=== PATIENT | male | born 1965 | race Caucasian/White ===

== ENCOUNTER 2018-03-06 01:11 | Inpatient (IN) | payer MEDICAID, OTHER ==
[2018-03-06] MEDS ORDERED: NS 1,000 ML IV ONE (01:20)
[2018-03-06] MEDS ORDERED: ONDANSETRON 4 MG/2 ML VIAL IVP ONE (01:20)
[2018-03-06] MEDS ORDERED: HYDROmorphONE/DILAUDID 2 MG/ML INJ IVP ONE ×3 (01:20→03:11)
--- NOTE | 2018-03-06 01:24 | EDPHY ---
H & P Stated Complaint: L wrist pain Time Seen by Provider: 03/06/18 01:21 HPI/ROS: HPI CHIEF COMPLAINT: Left wrist pain. HISTORY OF PRESENT ILLNESS: 52-year-old male, history of osteoarthritis, multiple knee surgeries, chronic neck and back pain, with a history of cervical and thoracic spine surgery, additionally had surgery on his left wrist years ago from a fracture. Has hardware present. He presents emergency room with progressively worsening left wrist pain and swelling. He denies any trauma. He states the pain became unbearable tonight and decided call 911 from the local homeless alf. He presents emergency room complaining of 10/10 left wrist pain. It is swollen. Pain is located over the dorsum of the left wrist typically over the distal right radius. Denies any fever chills. Past Medical History: History of arthritis, multiple knee surgeries, back surgery, neck surgery, chronic back pain, history of IV drug use, history of staph infection the right knee he believes due to IV drug use. Past Surgical History: Right knee surgery. Cervical spine surgery, thoracic spine surgery. Left wrist surgery with scaphoid fracture with pin. No history of wrist infection. Social History: Homeless. Denies drugs alcohol tobacco. Staying a local homeless alf. Family History: Noncontributory ROS REVIEW OF SYSTEMS: 10 Systems were reviewed and negative with the exception of the elements mentioned in the history of present illness. Exam Constitutional triage nursing summary reviewed, vital signs reviewed, awake/ alert. Eyes normal conjunctivae and sclera, EOMI, PERRLA. HENT normal inspection, atraumatic, moist mucus membranes, no epistaxis, neck supple/ no meningismus, no raccoon eyes. Respiratory clear to auscultation bilaterally, normal breath sounds, no respiratory distress, no wheezing. Cardiovascular rate normal, regular rhythm, no murmur, no edema, distal pulses normal. Gastrointestinal soft, non-tender, no rebound, no guarding, normal bowel sounds, no distension, no pulsatile mass. Genitourinary no CVA tenderness. Musculoskeletal left wrist: Good radial pulse, good cap refill, able to wiggle his fingers appropriately. However the wrist is swollen, mainly swollen over the dorsum of the left wrist. Tender. But no crepitus. No redness. No significant warmth. Old incision lines present. No signs infection on exam externally. Pain with range of motion present. no midline vertebral tenderness, full range of motion, no calf swelling, no tenderness of extremities, no meningismus, good pulses, neurovascularly intact. Skin pink, warm, & dry, no rash, skin atraumatic. Neurologic awake, alert and oriented x 3, AAOx3, moves all 4 extremities equally, motor intact, sensory intact, CN II-XII intact, normal cerebellar, normal vision, normal speech. Psychiatric normal mood/affect. Heme/Lymph/Immune no lymphadenopathy. Differential Diagnosis: Includes but is not limited to in a particular order osteoarthritis, gout, fracture, septic joint, tendinitis Medical Decision Making: Plan for this patient x-ray left wrist. Inflammatory markers ESR and CRP, IV pain control 1 mg Dilaudid, gentle IV fluids. CBC and chemistry. Re-evaluate. Re-evaluation: X-ray left wrist reviewed by myself. Shortness arthritis. Screw in place. No evidence of fracture. Soft tissue swelling noted. No gas. Patient re-evaluated 2:30 a.m. Continues to have severe 10/10 left wrist pain. Did feel slightly better after Toradol and Dilaudid. Plan for re-dose of Dilaudid. 0239: Patient be placed in a simple splint for his wrist so he does not move it and cause more micro trauma causing were inflammation. I attempted to splint this patient however he is refusing to have the splint in place. He states too much discomfort. This was a very loosely applied splint. He states any sensation over his inflammation causes discomfort. Prefers to not have it on. Ice pack provided. 0322: Attempted to splint the patient apply ice pack however he does not tolerate this and does not want it. Refusing splint or ice pack. 3rd dose of IV Dilaudid given for pain control. At times patient moaning in pain. Given how much pain he has and discomfort and swelling was wrist plan will be for hospital admission. I doubt septic joint given no redness, no fever, no significant white count. However continues to have pain and swelling may need a arthrocentesis by Hand surgery. Plan for admission to the hospitalist service Dr. Lynn, agrees to admit. X-ray shows arthritis. Poor bone mineralization. Clinically on exam no crepitus, has tenderness with range of motion but is able to range his wrist, able to move his fingers. No compartment syndrome. IV Dilaudid IV Toradol and IV fluids given. Blood work reviewed. Uric acid normal. Hospital admission for pain control. Patient agrees for admission 0325AM: spoke with Dr. Lynn, agrees to admit. Source: Patient, EMS - Personal History Current Tetanus Diphtheria and Acellular Pertussis (TDAP): Yes - Medical/Surgical History Hx Asthma: No Hx Chronic Respiratory Disease: No Hx Diabetes: No Hx Cardiac Disease: No Hx Renal Disease: No Hx Cirrhosis: No Hx Alcoholism: No Hx HIV/AIDS: No Hx Splenectomy or Spleen Trauma: No Other PMH: L wrist fracture, perforated ulcer, ortho surgeries - Social History Smoking Status: Never smoked Constitutional: Initial Vital Signs Temperature (C) 36.7 C 03/06/18 01:15 Heart Rate 100 03/06/18 01:15 Respiratory Rate 18 03/06/18 01:15 Blood Pressure 134/89 H 03/06/18 01:15 O2 Sat (%) 97 03/06/18 01:15 O2 Delivery Mode Room Air O2 (L/minute) 2 Allergies/Adverse Reactions: acetaminophen [From Tylenol] Allergy (Verified 03/06/18 07:27) NSAIDS (Non-Steroidal Anti-Inflamma Allergy (Verified 03/06/18 07:27) hx duodenal ulcer Home Medications: Medication Instructions Recorded Clarithromycin [Biaxin (*)] 500 mg PO BID 03/06/18 Gabapentin [Neurontin 100 MG (*)] 200 mg PO TID 03/06/18 Oxycodone Ir 10mg 10 mg PO Q4HRS PRN 03/06/18 Pantoprazole Sodium [Protonix 40mg 40 mg PO DAILY 03/06/18 (*)] buPROPion XL [Wellbutrin Xl] 150 mg PO DAILY 03/06/18 traZODone [traZODONE 50MG (*)] 50 mg PO HS 03/06/18 Amoxicillin Trihydrate [Amoxil] 1,000 mg PO BID 03/08/18 Medical Decision Making - Data Points Laboratory Results: Laboratory Results 03/07/18 05:45 03/07/18 05:45 Medications Given: Amoxicillin (Amoxicillin) 1,000 mg PO BID JOANN PRN Reason: Protocol Stop: 04/07/18 08:59 Last Admin: 03/10/18 08:34 Dose: 1,000 mg Bupropion HCl (Wellbutrin Xl) 150 mg PO DAILY [facility] Stop: 09/03/18 08:59 Last Admin: 03/10/18 08:34 Dose: 150 mg Clarithromycin (Biaxin) 500 mg PO BID JOANN PRN Reason: Protocol Stop: 04/05/18 20:59 Last Admin: 03/10/18 08:34 Dose: 500 mg Gabapentin (Neurontin) 200 mg PO TID [facility] Stop: 09/02/18 15:59 Last Admin: 03/10/18 08:33 Dose: 200 mg Hydromorphone HCl (Dilaudid Prenatal Genetic Counselor) 0 mg IV PRN PRN; Protocol PRN Reason: Pain, Severe Stop: 03/16/18 09:37 Last Admin: 03/08/18 21:23 Dose: 6 mg Hydromorphone HCl (Dilaudid) 0.4 mg IVP ONCE PRN PRN Reason: Pain, Severe Able to Take PO Stop: 03/16/18 22:05 Last Admin: 03/10/18 09:34 Dose: 0.4 mg Sodium Chloride (Ns) 1,000 mls @ 125 mls/hr IV CONT [facility] Stop: 09/02/18 03:59 Last Admin: 03/10/18 05:35 Dose: 1,000 mls Daptomycin 500 mg/ Sodium (Chloride) 110 mls @ 200 mls/hr IV Q24H JOANN PRN Reason: Protocol Stop: 04/07/18 21:59 Last Admin: 03/09/18 22:28 Dose: 110 mls Lorazepam (Ativan) 0.5 - 1 mg PO Q8HRS PRN PRN Reason: Anxiety, Able to Take PO Stop: 09/02/18 03:46 Last Admin: 03/09/18 09:12 Dose: 1 mg Oxycodone HCl (Oxycodone Ir) 5 - 10 mg PO Q3H PRN PRN Reason: Pain, Breakthrough Stop: 03/16/18 07:18 Last Admin: 03/10/18 11:56 Dose: 10 mg Pantoprazole Sodium (Protonix) 40 mg PO DAILY [facility] Stop: 09/03/18 08:59 Last Admin: 03/10/18 08:34 Dose: 40 mg Trazodone HCl (Trazodone) 50 mg PO HS [facility] Stop: 09/02/18 20:59 Last Admin: 03/09/18 22:32 Dose: Not Given Discontinued Medications Bupivacaine HCl/Epinephrine Bitart (Bupivacaine/Epi) Confirm Administered Dose 30 ml .ROUTE .STK-MED ONE Stop: 03/08/18 23:32 Last Admin: 03/08/18 23:33 Dose: 10 ml Hydromorphone HCl (Dilaudid) 1 mg IVP EDNOW ONE Stop: 03/06/18 01:21 Last Admin: 03/06/18 01:41 Dose: 1 mg Hydromorphone HCl (Dilaudid) 1 mg IVP EDNOW ONE Stop: 03/06/18 02:28 Last Admin: 03/06/18 02:30 Dose: 1 mg Hydromorphone HCl (Dilaudid) 1 mg IVP EDNOW ONE Stop: 03/06/18 03:12 Last Admin: 03/06/18 03:14 Dose: 1 mg Hydromorphone HCl (Dilaudid) 1 mg IVP ONCE ONE Stop: 03/06/18 05:16 Last Admin: 03/06/18 05:00 Dose: 1 mg Hydromorphone HCl (Dilaudid) 0.1 - 0.4 mg IVP Q10M PRN PRN Reason: PACU, PAIN Stop: 03/08/18 16:09 Last Admin: 03/08/18 17:19 Dose: 0.4 mg Sodium Chloride (Ns) 1,000 mls @ 0 mls/hr IV ONCE ONE; Wide Open PRN Reason: Protocol Stop: 03/06/18 01:21 Last Admin: 03/06/18 01:40 Dose: 1,000 mls Vancomycin HCl 1.25 gm/ Sodium (Chloride) 250 mls @ 166.667 mls/hr IV Q12H [facility] Stop: 04/05/18 20:59 Last Admin: 03/08/18 11:31 Dose: Not Given Midazolam HCl (Versed) 0 mg IVP ONCALL PRN PRN Reason: Per provider during procedure Stop: 03/07/18 16:23 Last Admin: 03/07/18 16:08 Dose: 4 mg Midazolam HCl (Versed) 2 mg IVP ONCALL ONE Stop: 03/08/18 22:09 Last Admin: 03/08/18 22:11 Dose: 2 mg Miscellaneous (Pharmacy To Dose Medication) 1 each MISC AD JOANN Stop: 03/06/18 07:16 Last Admin: 03/06/18 20:33 Dose: Not Given Morphine Sulfate (Morphine) 1 - 2 mg IVP Q1HR PRN PRN Reason: Pain, Breakthrough Stop: 03/16/18 03:46 Last Admin: 03/06/18 08:13 Dose: 1 mg Ondansetron HCl (Zofran) 4 mg IVP EDNOW ONE Stop: 03/06/18 01:21 Last Admin: 03/06/18 01:41 Dose: 4 mg Oxycodone HCl (Oxycodone Ir) 5 - 10 mg PO Q6HRS PRN PRN Reason: Pain, Breakthrough Stop: 03/16/18 03:46 Last Admin: 03/06/18 20:19 Dose: 10 mg Departure - Departure Disposition: [facility] Acute Clinical Impression: Wrist pain, acute Qualifiers: Laterality: left Qualified Code(s): M25.532 - Pain in left wrist Condition: Fair
[2018-03-06 01:51] LABS: PLATELET COUNT 384 10^3/uL (150-400)
[2018-03-06 01:59] LABS: INR 1.13 (0.83-1.16); PROTIME(PATIENT) 14.7 SEC (12.0-15.0)
[2018-03-06] MEDS ORDERED: HYDROmorphONE/DILAUDID 1 MG/ML INJ ONE (03:12)
[2018-03-06] MEDS ORDERED: ACETAMINOPHEN 325 MG TAB PO PRN (03:47)
[2018-03-06] MEDS ORDERED: diphenhydrAMINE 25 MG CAP PO PRN (03:47)
[2018-03-06] MEDS ORDERED: HYDROCODONE/APAP 5/325 TAB PO PRN (03:47)
[2018-03-06] MEDS ORDERED: ONDANSETRON 4 MG/2 ML VIAL IVP PRN (03:47)
[2018-03-06] MEDS ORDERED: oxyCODONE IR 5 MG TAB PO PRN (03:47)
[2018-03-06] MEDS ORDERED: ONDANSETRON DISINTEGRATING 4 MG TAB PO PRN (03:47)
[2018-03-06] MEDS: LORazepam 0.5 MG TAB PO PRN (04:47)
[2018-03-06] MEDS: NS 1,000 ML IV SCH ×2 (05:09→15:11)
[2018-03-06 05:13] LABS: PLATELET COUNT 359 10^3/uL (150-400)
[2018-03-06] MEDS ORDERED: HYDROmorphONE/DILAUDID 1 MG/ML INJ IVP ONE (05:15)
[2018-03-06] MEDS ORDERED: HYDROmorphONE/DILAUDID 1 MG/ML INJ IVP PRN ×2 (07:29→22:06)
--- NOTE | 2018-03-06 07:48 | PDGENHP ---
History and Physical - Chief Complaint Left wrist pain and swelling - History of Present Illness Source-patient provides history and appears reliable. EMR was reviewed and case discussed with ED provider. HPI-this is a pleasant 52-year-old gentleman with past medical history significant for chronic pain on chronic narcotic therapy history of on osteoarthritis degenerative disc disease status post multiple effusions in the cervical and thoracic spine, recent history of duodenal ulcer recently discharged from [facility] 02/23/2018 for perforated duodenal ulcer status post Prsoper patch repair who presents emergency department today with complaints of severe left wrist pain and swelling. Patient had repair and pending on his scaphoid many years ago. He denies any recent injury or skin abrasions. Patient states pain started approximately 2 days ago. Has progressively been worsening. Today pain was increasing lists severe radiating up into his forearm. Patient reports some numbness and tingling in his fingers and on his arm as though everything is "on fire." Patient reports subjective fevers chills and sweats at home. He denies any nausea or vomiting. History Information - Allergies/Home Medication List Allergies/Adverse Reactions: acetaminophen [From Tylenol] Allergy (Verified 03/06/18 07:27) NSAIDS (Non-Steroidal Anti-Inflamma Allergy (Verified 03/06/18 07:27) hx duodenal ulcer Home Medications: Amoxicillin Trihydrate [Amoxicillin] 1,000 mg PO BID 03/06/18 [Last Taken Unknown] Clarithromycin [Biaxin (*)] 500 mg PO BID 03/06/18 [Last Taken Unknown] Gabapentin 03/06/18 [Last Taken Unknown] Oxycodone Ir 10mg 10 mg PO Q4HRS PRN 03/06/18 [Last Taken Unknown] Pantoprazole Sodium [Protonix 40mg (*)] 40 mg PO DAILY 03/06/18 [Last Taken Unknown] buPROPion XL [Wellbutrin Xl] 150 mg PO DAILY 03/06/18 [Last Taken Unknown] traZODone 03/06/18 [Last Taken Unknown] I have personally reviewed and updated: family history, medical history, social history, surgical history - Past Medical History Additional medical history: Chronic pain, degenerative disc disease, chronic narcotic therapy, history recent duodenal ulcer with perforation currently on triple antibiotic therapy. - Surgical History Additional surgical history: Multiple back surgeries including fusion C3 through 7, T4 through T9. Total number back surgeries 3. Left wrist surgery with pinning in the scaphoid. Right upper abdomen patient reports he had a superficial lesion or cyst removed. Denies a cholecystectomy. Recent exploratory laparotomy with a Prosper patch for perforated duodenal ulcer 2017. - Family History Additional family history: Denies - Social History Smoking Status: Never smoked Tobacco Use: Greater than 1 pack/day Alcohol Use: None Drug Use: None Additional social history: Patient with recent losses of his grandmother and . Cor status-full. Review of Systems Review of Systems: ROS: 10pt was reviewed & negative except for what was stated in HPI & below Constitutional: Reports: chills, fever, other (Reports sweats.) EENMT: Reports: no symptoms Cardiac: Reports: no symptoms Respiratory: Reports: no symptoms Gastrointestinal: Reports: no symptoms, other (Patient reports abdominal pain postoperative is pretty well controlled.) Genitourinary: Reports: no symptoms Muscolosketal: Reports: back pain (Chronic), joint pain (Left wrist pain and swelling.) Skin: Denies: no symptoms Neurological: Reports: numbness, tingling Physical Exam Physical Exam: Selected Entries 03/06/18 03/06/18 01:15 04:36 Blood Pressure Automatic Method Heart Rate 100 99 Respiratory 18 19 Rate O2 Sat (%) 97 100 Temperature (C) 36.7 C 37.4 C Blood Pressure 134/89 H 111/92 H Mean Arterial 104 H 98 Pressure (MAP) O2 (L/minute) 2 O2 Delivery Room Air Nasal Cannula Mode Blood Pressure Right Source Upper Arm Automatic Temperature Oral Oral Source Temp Pulse Resp BP Pulse Ox 37.4 C 99 19 111/92 H 100 03/06/18 04:36 03/06/18 04:36 03/06/18 04:36 03/06/18 04:36 03/06/18 04:36 O2 (L/minute) 2 Constitutional: no apparent distress, chronically ill appearing, uncomfortable, other (Patient in mild distress due to pain in his left arm. He is restless and unable to sit still. Chronically ill-appearing but Does not appear toxic) Eyes: PERRL (Decreased reactivity to light bilaterally and symmetric.), anicteric sclera, EOMI, No scleral injection Ears, Nose, Mouth, Throat: moist mucous membranes, no oral mucosal ulcers, poor dentition (Fair condition), other (No nasal discharge) Cardiovascular: regular rate and rhythym, no murmur, rub, or gallop, pulses symmetric bilaterally, edema (2+ pretibial edema bilaterally. Chronic lower extremity skin changes.) Peripheral Pulses: 1+: dorsalis-pedis (R), dorsalis-pedis (L) Respiratory: no respiratory distress, no rales or rhonchi, clear to auscultation , No expiratory wheeze, No inspiratory crackles Gastrointestinal: normoactive bowel sounds, soft, non-tender abdomen, no palpable masses, other (Right upper quadrant well-healed surgical scar. Upper midline abdominal incision site healed. Stable sites scabbed. No surrounding erythema.) Genitourinary: no bladder tenderness, No tena in urethra Skin: warm, normal color, no rashes or abrasions, No rash Musculoskeletal: full muscle strength (Except in the left upper extremity.), pain with ROM (Left fingers and wrist. Patient with significant swelling. Limited palpable radial pulse due to pain and swelling. Patient with a 2+ ulnar pulse.), No generalized weakness Neurologic: AAOx3, other (Grossly nonfocal. Patient reports numbness and tingling in his fingers. He states he is not able to feel my touch however when I move his fingers he complains of pain.), No facial droop Psychiatric: not encephalopathic, thought process linear, anxious, other Lab Data & Imaging Review 03/06/18 04:53 03/06/18 04:53 WBC 9.16 10^3/uL (3.80-9.50) 03/06/18 04:53 RBC 4.23 10^6/uL (4.40-6.38) L 03/06/18 04:53 Hgb 12.4 g/dL (13.7-17.5) L 03/06/18 04:53 Hct 37.1 % (40.0-51.0) L 03/06/18 04:53 MCV 87.7 fL (81.5-99.8) 03/06/18 04:53 MCH 29.3 pg (27.9-34.1) 03/06/18 04:53 MCHC 33.4 g/dL (32.4-36.7) 03/06/18 04:53 RDW 13.8 % (11.5-15.2) 03/06/18 04:53 Plt Count 359 10^3/uL (150-400) 03/06/18 04:53 MPV 9.3 fL (8.7-11.7) 03/06/18 04:53 Neut % (Auto) 71.9 % (39.3-74.2) 03/06/18 04:53 Lymph % (Auto) 14.7 % (15.0-45.0) L 03/06/18 04:53 Eddy % (Auto) 11.1 % (4.5-13.0) 03/06/18 04:53 Eos % (Auto) 1.6 % (0.6-7.6) 03/06/18 04:53 Baso % (Auto) 0.4 % (0.3-1.7) 03/06/18 04:53 Nucleat RBC Rel Count 0.0 % (0.0-0.2) 03/06/18 04:53 Absolute Neuts (auto) 6.57 10^3/uL (1.70-6.50) H 03/06/18 04:53 Absolute Lymphs (auto) 1.35 10^3/uL (1.00-3.00) 03/06/18 04:53 Absolute Monos (auto) 1.02 10^3/uL (0.30-0.80) H 03/06/18 04:53 Absolute Eos (auto) 0.15 10^3/uL (0.03-0.40) 03/06/18 04:53 Absolute Basos (auto) 0.04 10^3/uL (0.02-0.10) 03/06/18 04:53 Absolute Nucleated RBC 0.00 10^3/uL (0-0.01) 03/06/18 04:53 Immature Gran % 0.3 % (0.0-1.1) 03/06/18 04:53 Immature Gran # 0.03 10^3/uL (0.00-0.10) 03/06/18 04:53 ESR 15 MM/HR (0-20) 03/06/18 01:43 PT 14.7 SEC (12.0-15.0) 03/06/18 01:43 INR 1.13 (0.83-1.16) 03/06/18 01:43 APTT 32.1 SEC (23.0-38.0) 03/06/18 01:43 Sodium 138 mEq/L (135-145) 03/06/18 04:53 Potassium 4.3 mEq/L (3.3-5.0) 03/06/18 04:53 Chloride 103 mEq/L (97-110) 03/06/18 04:53 Carbon Dioxide 23 mEq/l (22-31) 03/06/18 04:53 Anion Gap 12 mEq/L (6-14) 03/06/18 04:53 BUN 14 mg/dL (7-23) 03/06/18 04:53 Creatinine 0.7 mg/dL (0.7-1.3) 03/06/18 04:53 Estimated GFR > 60 03/06/18 04:53 Glucose 121 mg/dL (70-100) H 03/06/18 04:53 Uric Acid 4.8 mg/dL (3.5-8.5) 03/06/18 01:43 Calcium 9.0 mg/dL (8.5-10.4) 03/06/18 04:53 C-Reactive Protein 58.4 mg/L (<10.0) H 03/06/18 01:43 Ethyl Alcohol < 10 mg/dL (0-10) 03/06/18 01:43 Imaging Review: Left Wrist, 4 Views, at 1:24 AM Clinical Indications: 52-year-old male with atraumatic pain and swelling for 2 days. Comparison Study: None available. Findings: There is an orthopedic screw projected over the distal two third's aspect of the navicular, and at the proximal one third aspect of the navicular, there appears to be partial osseous fusion. There also appears to be an intraosseous cyst occupying the distal two thirds portion of the central navicular. There is radiocarpal joint space narrowing with osseous hypertrophy of the radial styloid (some punctate well-corticated ossific densities are seen along the lateral margin of the radial styloid). There is a tiny subchondral marginal erosion along the radial aspect of the lunate, and subchondral geode formation is seen throughout the radial aspect of the capitate. There is some degenerative change involving the greater multangular, and some mild degenerative change at the thumb carpometacarpal joint. There is chondrocalcinosis of the triangular fibrocartilage. There appears to be an old healed distal radial metaphyseal sclerotic fracture line. There is some mild dorsal and volar soft tissue swelling. Impression: Extensive chronic features with superimposed arthropathy, as detailed-above. Correlation with prior studies would be helpful to assess for more specific interval change. Dictated By: Milan Gregory MD Visualized and Interpreted imaging results: Yes Assessment & Plan Assessment: 52-year-old gentleman with history of chronic pain on chronic narcotic therapy and history of pinning in the scaphoid left wrist who presents with complaints of 2 days worsening left wrist pain and swelling Wrist pain and swelling - patient reports acute onset of swelling and pain. He is reporting some numbness and tingling however complaints of pain when I assess for sensation. He has good ulnar pulse. Palpable radial pulse but was limited due to patient's complaint of severe pain with palpation. Patient with less than 2 sec cap refill reassuring that there is no compartment syndrome. Differential diagnosis including considerations for gout vs. Septic joint vs. Worsening arthritis. Patient is afebrile without a leukocytosis. There is no redness on the lower extremity. Patient remains quite uncomfortable. He is not a candidate for NSAIDs due to his recent duodenal ulcer. He has a history of chronic narcotic use for his chronic back pain and so pain control may be a little difficult. Aspiration of the joint for further evaluation of fluid for potential infectious process. Ortho consult this morning. Will make patient NPO. Discussed with the hospitalist. Acute on chronic pain - with use of chronic narcotic therapy as noted above. Duodenal ulcer with recent perforation and repair with Prosper patch - continue PPI. Patient is also on triple antibiotic therapy per discharge summary from [facility]. Depressed mood - continue patient's Wellbutrin 150 XL daily Anemia - baseline H&H unknown. s/p surgery. no evidence of active bleeding. denies blood in stools. monitor hh. thombocytopenia - baseline also unknown. check. patient was advised not to take tylenol. denies etoh intake. FEN - IV fluids for supplementation. Make patient NPO pending further evaluation. Electrolytes acceptable do not require replacement at this time. PPX - SCDs. Holding anticoagulation. Cor status-full Disposition-patient admitted to observation status pending additional evaluation of wrist swelling.
[2018-03-06] MEDS: oxyCODONE IR 5 MG TAB PO PRN ×5 (07:50→23:48)
[2018-03-06] MEDS ORDERED: LIDOCAINE 1% 300 MG/30 ML SDV ONE ×2 (08:49→21:38)
[2018-03-06] MEDS ORDERED: IOPAMIDOL (ISOVUE 370) 100 ML BTL IV ONE (09:18)
[2018-03-06] MEDS ORDERED: NALOXONE HCL 0.4 MG/ML INJ IVP PRN (09:38)
--- NOTE | 2018-03-06 09:45 | HOSPPROG ---
Hospitalist Progress Note Assessment/Plan: # L wrist arthritis - ortho consult - refused aspiration in IR d/t pain # uncontrolled pain - start DIRT CONTRACTOR # chronic pain on continuous narcotics # recent duodenal perf - repaired with a Prosper patch; now off IV abx - currently being treated for h. pylori # anemia - stable overnight Subjective: c/o severe pain in L wrist Objective: Vital Signs Temp Pulse Resp BP Pulse Ox 37.4 C 110 H 20 108/85 H 98 03/06/18 04:36 03/06/18 08:38 03/06/18 08:38 03/06/18 08:38 03/06/18 08:38 Laboratory Results 03/06/18 04:53 03/06/18 04:53 03/05/18 03/06/18 03/07/18 05:59 05:59 05:59 Intake Total 1000 Output Total 425 Balance 1000 -425 PT 14.7 SEC (12.0-15.0) 03/06/18 01:43 INR 1.13 (0.83-1.16) 03/06/18 01:43 i spent 40 mins of direct, prolonged patient care time discussed with Dr Lloyd who states that she was not visualization developer last night for hand surgery; dana has been placed to Dr Perez at this time - Physical Exam Constitutional: uncomfortable Cardiovascular: regular rate and rhythym, no murmur, rub, or gallop Respiratory: no respiratory distress, no rales or rhonchi, clear to auscultation Gastrointestinal: soft, non-tender abdomen, no palpable masses, No guarding, No rebound, No distension Musculoskeletal: other (L wrist very swollen, not erythematous, very TTP) ICD10 Worksheet Patient Problems: Problems Problem Status Onset Wrist pain, acute Acute
[2018-03-06] MEDS: HYDROmorphONE/DILAUDID 6 MG/30 ML PCA IV PRN ×2 (11:03→19:37)
--- NOTE | 2018-03-06 16:07 | ASMTCMCOM ---
CM Note CM Note Notes: Pt has been admitted with intractable L wrist pain. Workup in progress. He was recently discharged from [facility] after hospitalization for a perforated duodenal ulcer and surgery. He is and lives in [place]. CM will follow for any d/c needs. Date Signed: 03/06/2018 04:06 PM Electronically Signed By:ALIA Chaudhary
[2018-03-06] MEDS: GABAPENTIN 100 MG CAP PO SCH ×2 (17:46→21:39)
[2018-03-06] MEDS ORDERED: BUPIVACAINE 0.25% 30 ML SDV ONE (21:39)
--- NOTE | 2018-03-06 23:18 | HOSPPROG ---
Hospitalist Progress Note Assessment/Plan: Followed up on patient at request of Dr. Ramos, patient awaiting ortho hand consultation from earlier in the day. Called Dr. Herring who was consulted, Dr. Herring states that she has chosen to resign at [facility] and therefore is refusing to see and evaluate patient as planned. Called Dr. Renteria, ortho information systems audit manager, his recommendations are to begin abx and re-address in am with ortho hand information systems audit manager. Discussed with Dr. Mckee of IR who attempted US guided drainage--there was not a significant pocket however and drainage therefore not attempted. At this time, patient does appear stable, given lack of significant fluid collection as discussed with Dr. Mckee this may represent cellulitis but further imaging or surgical evaluation still indicated. Will ask ID to consult in the morning, will again attempt to have ortho hand evaluate patient and continue vancomycin for now. > 60 min of extended care time spent with this patient from 8pm-915pm in face to face evaluation of patient, discussion with multiple specialists and patients primary physician and in coordinating care Objective: Vital Signs Temp Pulse Resp BP Pulse Ox 37.4 C 100 16 118/87 H 86 L 03/06/18 20:00 03/06/18 20:00 03/06/18 20:00 03/06/18 20:00 03/06/18 20:00 Laboratory Results 03/06/18 04:53 03/06/18 04:53 03/05/18 03/06/18 03/07/18 05:59 05:59 05:59 Intake Total 1000 1060 Output Total 1075 Balance 1000 -15 PT 14.7 SEC (12.0-15.0) 03/06/18 01:43 INR 1.13 (0.83-1.16) 03/06/18 01:43 ICD10 Worksheet Patient Problems: Problems Problem Status Onset Wrist pain, acute Acute
[2018-03-06] MEDS: VANCOMYCIN 1.25 GM in NS 250 ML IV SCH (23:50)
[2018-03-07] MEDS: traZODone 50 MG TAB PO SCH ×2 (00:02→21:10)
[2018-03-07] MEDS: CLARITHROMYCIN 500 MG TAB PO SCH ×3 (00:02→21:11)
[2018-03-07] MEDS: NS 1,000 ML IV SCH (00:08)
[2018-03-07] MEDS: LORazepam 0.5 MG TAB PO PRN ×2 (01:02→10:05)
[2018-03-07] MEDS: HYDROmorphONE/DILAUDID 6 MG/30 ML PCA IV PRN ×3 (01:05→18:45)
[2018-03-07 05:59] LABS: PLATELET COUNT 273 10^3/uL (150-400)
[2018-03-07] MEDS: oxyCODONE IR 5 MG TAB PO PRN ×3 (06:43→17:48)
[2018-03-07] MEDS: buPROPion XL 150 MG TAB PO SCH (09:59)
[2018-03-07] MEDS: PANTOPRAZOLE SODIUM 40 MG TAB PO SCH (10:00)
[2018-03-07] MEDS: GABAPENTIN 100 MG CAP PO SCH ×3 (10:00→21:10)
[2018-03-07] MEDS: VANCOMYCIN 1.25 GM in NS 250 ML IV SCH ×2 (10:01→21:11)
--- NOTE | 2018-03-07 13:31 | GCON ---
ORTHOPEDIC EMERGENCY ROOM CONSULTATION CHIEF COMPLAINT: Left wrist and hand swelling. BRIEF HISTORY OF PRESENT ILLNESS: A 52-year-old male. Homeless. Recent history of multiple hospita lizations including septic arthritis and ulcer. Positive for hepatitis C. Developed atraumatic left hand pain for about 2-3 days. History of a scaphoid fracture and pinning maybe 15-20 years ago by bianca mills in [place]. He states that he had some hand evaluation for a potential radial nerve entrapmen t, but this is unclear from his story. Please see details of emergency room history and physical and admitting H and P. PERTINENT ORTHOPEDIC EXAMINATION: Reveals a cooperative gentleman. He is in no apparent distress. The left hand shows swelling about the hand and wrist. There is some dorsal erythema around the 1st webspace. He has an intact EPL, but painful. He has sausage digits and swelling. He has tenderness about his mid palmar space and dorsal surface of his hand. He has very limited range of motion of h is wrist. He was seen in the emergency room on Tuesday. Splint application was attempted, but there was too muc h pain. MRI was attempted yesterday, but too much movement and pain. He seemed to be recalcitrant t o most of our interventions and treatments. IMPRESSION/RECOMMENDATION: Atraumatic left wrist and hand swelling and pain. I think some further diagnostic imaging and an MRI would be super helpful to look for a deep space in fection. At least to rule out a collection and surgical indication. I still recommend a well-padded splint for immobilization. Recommend elevation, and I agree with starting prophylactic antibiotics in case this is an infectious etiology. I believe medical staff is working on hand coverage at this point. Otherwise, I think he will need a formal hand consultation. /[id number]/MODL
--- NOTE | 2018-03-07 15:02 | GCON ---
INFECTIOUS DISEASE CONSULTATION DATE OF CONSULTATION: 03/07/2018 REFERRING PHYSICIAN: Natasha Herman MD REASON FOR CONSULTATION: Possible septic arthritis of the left wrist. HISTORY OF PRESENT ILLNESS: Patient is a 52-year-old male with a past medical history of chronic everett n and injection drug use, last use reported as 5 years ago who I am asked to see in consultation for concern about possible septic arthritis of the left wrist. The patient had been hospitalized 1 week ago for a perforated duodenal ulcer requiring patch repair at [facility]. Over the 2 da ys preceding current hospital admission, the patient developed abrupt onset of left wrist, hand, and forearm pain. He did not have any preceding injury. He describes having prior surgical repair of fr acture in his wrist approximately 8 years ago. He has had some subjective fever and describes having shaking chills earlier today. He has had mild overlying erythema. He does not note any preceding i njury to his hand. He does not have a prior history of gout or pseudogout. The patient describes marshall ving several episodes of right knee septic arthritis, the most recent being in December of this year . He was hospitalized in [place] with IV antibiotic therapy and required incision and drainage. Dis charge instructions were reviewed from that hospitalization, which outline etiology was likely associ ated with tricuspid valve endocarditis and MSSA. He does not know which organism caused his infectio n. He describes current left wrist pain as being more severe than his prior right knee septic arthri tis. MRI of the upper extremity was attempted yesterday, but could not be completed successfully due to inability to stay still, secondary to pain. An ultrasound of the area was performed, which showe d diffuse soft tissue edema without evidence of local fluid collection; aspiration was not performed. Plain film of the wrist showed presence of an orthopedic screw in the navicular with partial osseou s fusion. Chondrocalcinosis was also noted. The patient has been receiving empiric vancomycin since yesterday. Given the above findings, I am now asked to assist in his ongoing management, . 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 PAST SURGICAL HISTORY: Recent repair of perforated ulcer, cervical spine surgery, lumbar fusion and drainage of probable epidural abscess, recurrent incision and drainage for right knee septic arthriti s. CURRENT MEDICATIONS: Vancomycin 1.25 g IV q.12 hours, Biaxin 500 mg p.o. b.i.d. (query if this was b eing utilized for H pylori), Wellbutrin XL 150 mg p.o. daily, Neurontin 200 mg p.o. t.i.d., Protonix 40 mg p.o. daily, trazodone 50 mg p.o. q.h.s., Protonix 40 mg p.o. daily, Dilaudid as needed for pain . ALLERGIES: Tylenol listed as drug allergy. SOCIAL HISTORY: No tobacco or alcohol use. Previous injection drug use with heroin. FAMILY HISTORY: Noncontributory. REVIEW OF SYSTEMS: Outside that noted in the HPI, the remainder of 10-system review is unremarkable. PHYSICAL EXAMINATION: VITAL SIGNS: Temperature maximum 38.0, temperature current 36.8, heart rate 9 9, respiratory rate 16, blood pressure 128/78, oxygen saturation 93% on room air. GENERAL: Patient is chronically ill appearing in no acute distress, other than that due to pain in left wrist. He wilfredo ears nontoxic. HEENT: There is no scleral icterus, conjunctival injection, or conjunctival petechia e. Oropharynx is clear without lesions. Mucous membranes are moist. Dentition in fair repair. The re is no nasal discharge. There is no tenderness over the frontal, maxillary, or mastoid area. NECK : Supple without palpable lymphadenopathy or thyromegaly. There is mild tenderness over the cervica l spine. CHEST: Clear to auscultation bilaterally without adventitious sounds. The respiratory eff ort is normal. CARDIOVASCULAR: Regular rate and rhythm without murmurs, gallops, or rubs. ABDOMEN: Soft, nontender, nondistended. No palpable organomegaly. Bowel sounds are present. MUSCULOSKELET AL: The left hand, wrist, and distal forearm are edematous with faint overlying erythema and tendern ess. The patient cannot fully flex his digits. Exquisite tenderness with wrist range of motion. Th ere is tenderness that extends into the distal forearm as well. The right knee shows edema with prob able small underlying effusion. There is mild warmth. There is no pain with range of motion or eryt christy. There is 2+ lower extremity edema bilaterally. SKIN: See musculoskeletal. There are mild ve nous insufficiency changes over both lower extremities. No stigmata of endocarditis. The skin is wa rm and dry to touch. NEUROLOGIC: Patient is alert, interacts appropriately with the examiner. Cran ial nerves 2-12 are grossly intact. Sensation is grossly intact. LYMPHATICS: No cervical or suprac lavicular nodes. No epitrochlear nodes on the left arm. LABORATORY DATA: White blood cell count 6.2, hematocrit 30.0, platelets 273, neutrophils 56%, lympho cytes 23%, monocytes 20%. ESR is 15. Serum creatinine is 0.6, bicarbonate 23. AST 130, ALT 134, bi lirubin 1.8, alkaline phosphatase 136, C-reactive protein 58.4. Urine drug screen showed opiates. V enous lactate 0.8. INR 1.1. Blood cultures x2 sets are pending. IMAGING: As outlined above. IMPRESSION: 1. Left wrist inflammatory arthropathy: Primary consideration, includes the possibility of septic a rthritis, particularly in light of prior history of probable endocarditis and right knee septic arthr itis versus crystalline arthropathy. X-ray shows presence of chondrocalcinosis, which can be seen wi th pseudogout. Overall presentation is more suggestive of crystalline arthropathy, but based on prio r infection history, likely will require fluid aspiration or incision and drainage to fully define. Plans are in place for re-attempt at MRI to further define soft tissue planes and joint. Hand Surger y consultation will also be obtained. Will continue empiric vancomycin in interim. 2. Increased liver function tests: Likely secondary to underlying known hepatitis C. RECOMMENDATIONS: 1. Continue vancomycin 1.25 g IV q.12 hours. 2. Agree with plans for MRI and Hand Surgery consultation. 3. Follow up blood cultures as available. 4. We will obtain records from hospital stay in [place] to see if further information can be delinea asaf regarding history of endocarditis and septic arthritis, including microbiologic data (face sheet from 1 of his clinic notes said MSSA). Thank you for this consultation. We will continue to follow the patient with you. /[id number]/MODL
--- NOTE | 2018-03-07 15:05 | HOSPPROG ---
Hospitalist Progress Note Assessment/Plan: 52yo M with chronic pain on opioids, multiple back surgeries with hardware, recent perforated duodenal ulcer s/p Prosper patch presents with acute onset erythema and pain in left wrist. #Left wrist arthritis: Concern for infectious (septic arthritis) vs inflammatory (gout/pseudogout flare) process. - Continue empiric vancomycin, ID following, blood cultures pending - Ortho hand (Dr Aquilino Zacarias) consulted. I personally spoke with him. Currently awaiting imaging results - Attempted to obtain MRI last night, unsuccessful due to pain/inability to sit still - US last night with no drainable abscess - Plan for MRI wrist with conscious sedation this afternoon, I personally discussed with manufacturing production technician/RN this plan - Pending imaging, may need surgical wash out #Acute on chronic pain - Continue dilaudid ADOBE FLEX DEVELOPER for pain control #Recent duodenal perforation: Repaired with Prosper patch, now off IV abx #H pylori: Currently being treated. #Aneami: Stable, monitor #Reported h/o IVDU: Denies any in 5 years or so #? h/o right knee septic arthritis: Circumstances unclear. Dispo: Remain inpatient for management of above. Anticipated date of discharge unclear. Subjective: Incredible pain in wrist. Apparently assembler clip on sunglasses was off for a few hours. Had chills last night. No fever. Objective: Vital Signs Temp Pulse Resp BP Pulse Ox 36.8 C 99 16 128/78 H 93 03/07/18 12:00 03/07/18 12:00 03/07/18 12:00 03/07/18 12:00 03/07/18 12:00 Laboratory Results 03/07/18 05:45 03/07/18 05:45 03/06/18 03/07/18 03/08/18 05:59 05:59 05:59 Intake Total 1000 1060 Output Total 1075 1300 Balance 1000 -15 -1300 PT 14.7 SEC (12.0-15.0) 03/06/18 01:43 INR 1.13 (0.83-1.16) 03/06/18 01:43 - Physical Exam Constitutional: uncomfortable (2/2 pain) Eyes: PERRL, anicteric sclera, EOMI Ears, Nose, Mouth, Throat: moist mucous membranes, hearing normal, ears appear normal, no oral mucosal ulcers Cardiovascular: regular rate and rhythym, no murmur, rub, or gallop, other (2+ left radial pulse) Respiratory: no respiratory distress, no rales or rhonchi, clear to auscultation Gastrointestinal: normoactive bowel sounds, soft, non-tender abdomen, no palpable masses Genitourinary: no bladder fullness, no bladder tenderness, no renal bruits Skin: erythema (left wrist), other (cap refill <2 seconds on left fingers) Musculoskeletal: other (limited ROM in left wrist 2/2 pain and swelling) Neurologic: AAOx3, sensation intact bilaterally Psychiatric: interacting appropriately, not anxious, not encephalopathic, thought process linear ICD10 Worksheet Patient Problems: Problems Problem Status Onset Wrist pain, acute Acute
[2018-03-07] MEDS ORDERED: FLUMAZENIL 0.5 MG/5 ML MDV IVP PRN (15:23)
[2018-03-07] MEDS ORDERED: NALOXONE HCL 0.4 MG/ML INJ IVP PRN (15:23)
[2018-03-07] MEDS ORDERED: MIDAZOLAM 2 MG/2 ML VIAL IVP PRN (15:23)
[2018-03-07] MEDS ORDERED: NS 1,000 ML IV SCH (15:30)
--- NOTE | 2018-03-07 15:54 | ASMTCMCOM ---
CM Note CM Note Notes: Pt is homeless, has [facility]. PT rec today says home vs. SNF and "No PT needs." Ortho and ID consulting. Currently on IV antibiotics, CM to follow if pt needs to d/c on IV antibiotics. Date Signed: 03/07/2018 03:53 PM Electronically Signed By:ALIA Li
--- NOTE | 2018-03-07 16:09 | PDPROPOC ---
Sedation Plan of Care Sedation Plan of Care: vital signs stable, mental status noted, patient educated of risks, benefits, alternatives, patient can tolerate sedation ASA Classification: ASA 2 Planned drugs: midazolam Mallampati Score: Class 3 Mallampati Reference Image: Patient passed 3-3-2 rule?: Yes
--- NOTE | 2018-03-07 16:10 | PDGENHP ---
History & Physical Chief Complaint: Left hand pain and inflammation History of Present Illness: Left hand pain and inflammation Relevant Physical Exam: swollen red left hand and wrist Cardiorespiratory Assessment: clear lungs. RRR
[2018-03-07] MEDS ORDERED: GADOBUTROL 10 ML VIAL IVP ONE (16:14)
--- NOTE | 2018-03-07 17:00 | SOAPPROG ---
JEFF Progress Note Assessment/Plan: Assessment: Plan: Hand Surgery consultation dictated. Need MRI or left hand/wrist. Expect will need GETA for this. 03/07/18 16:57 Objective: Vital Signs Temp Pulse Resp BP Pulse Ox 37.3 C 106 H 20 128/78 H 96 03/07/18 15:40 03/07/18 15:40 03/07/18 15:40 03/07/18 15:40 03/07/18 15:40 Laboratory Results 03/07/18 05:45 03/07/18 05:45 03/06/18 03/07/18 03/08/18 05:59 05:59 05:59 Intake Total 1000 1060 Output Total 1075 1300 Balance 1000 -15 -1300 PT 14.7 SEC (12.0-15.0) 03/06/18 01:43 INR 1.13 (0.83-1.16) 03/06/18 01:43 ICD10 Worksheet Patient Problems: Problems Problem Status Onset Wrist pain, acute Acute
--- NOTE | 2018-03-07 17:22 | PDMN ---
Medical Necessity Medical necessity: MCG MGSIC Systemic or Infectious Condition and PGPM Pain Management GR yo w/ wrist pain and swelling, initially OBS for eval but during hospital course pt had ortho and IR consult, appears infectious vs. inflammatory in nature, US guided drainage attempted by IR, possibly cellulitis , further imaging or surgical evaluation indicated, ID consult ordered, pt placed on dilaudid KICK BOXER for pain management, NPO status for possible intervention , IV antibx and IV fluids to cont, important to note abnormal LFTS, will trend. Hx chronic pain on chronic narcotic therapy history of on osteoarthritis degenerative disc disease status post multiple effusions in the cervical and thoracic spine, recent history of duodenal ulcer recently discharged from [facility] 02/23/2018 for perforated duodenal ulcer status post Prosper patch repair, currently on triple antibiotic tx. Change to IP status 02/04/18 @ 4578 per order
--- NOTE | 2018-03-07 19:43 | GCON ---
BRIEF HISTORY: I was asked to see the patient due to sudden abrupt change in the hand surgery call s rof available. He is a 52-year-old gentleman who was admitted 2 days ago for intractable swelling a nd pain in his left nondominant hand. Apparently, this progressively worsened over several days. He has a history of prior injury to this hand with screw fixation of the scaphoid fracture approximatel y 15 years ago. He does note during the interview that it has never been normal since the surgery an d was somewhat fixated on the fact that the metal may be prominent in his wrist. His history is well detailed in notes outlined from Dr. Genoveva Renteria who saw him in consultation from orthopedic [facility] and also from his emergency department course and admission to the hospital. I have also review ed the consultations from Dr. Capellan and Dr. Ayo Anderson. He has outlined his previous possible histo ry of endocarditis and prior septic joints. We have no verifiable details of these. On examination of the left wrist, I find it to be markedly swollen predominantly on the radial side o f the wrist in the thumb base and hand. He is describing significant pain dorsally on the radial praveena e but also on the ulnar side of his wrist. He has a tip to palm distance with composite fist attempt of greater than 10 cm. This represents only approximately a 20-degree flexion at the MP joint and p erhaps 5 degrees at the PIP joints with no motion at the DIP joints of any finger or thumb. He has a grossly normal sensory examination to light touch in the radial, median, and ulnar nerve distributio ns, but does report some subjective numbness in the ulnar nerve distribution dorsally but not palmarl y. His hand is warm and is slightly erythematous. I have reviewed his x-rays that were taken in the emergency department. 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 There is obvious wear of the radial border of his wrist with a misshapen scaphoid. There is Aman Whipple screw placed from distal to proximal that is well encased in the distal fragment but does not appear to have purchase in the proximal fragment. The arthritic pattern is consistent with SNAC wrist arthritis and at a mod erate stage. I have also reviewed the limited MRI studies and the ultrasound report. Neither of the se demonstrate an obvious fluid collection that would be amenable to surgical drainage. He has had 2 attempts at MRI, both of which have been curtailed secondary to the patient's discomfort and inabili ty to be still in the MRI scanner. Laboratory studies reviewed, which reveal normal white count, normal sed rate but elevated CRP. Duri ng this hospitalization, patient has remained afebrile as well. 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 This patient is heavily sensitized to opiates and is having great difficulty coping wit h level of discomfort that he is having. There is certainly a possibility this is an infectious etio logy as well. I interviewed the patient just outside his failed 2nd attempted MRI. I raised the pos sibility of aspiration of his wrist. He immediately refused without essentially a general anesthetic . While the imaging studies to date are not particularly accurate for making determination as to a drai nable fluid collection, it does not appear that there is an abscess that could be addressed surgicall y. I would like confirmation of this before we engage in any invasive treatment. I feel an MRI woul d give us most reliable source of information to make a treatment recommendation. I think the best t reatment at this stage would be treating for the potential septic joint with IV antibiotics. If ther e is no change, then it would be prudent to consider steroid treatment for him. An aspiration is dif ficult to perform in an acute setting on a painful wrist without an obvious fluid collection and, bas ed on the limited MRI examination he had, I do not see a drainable fluid collection. I would be happ y to help with his care but, as noted, I think that an MRI is necessary to determine the next step ev en if that entails a general anesthetic to do so. I will continue to follow this patient. /[id number]/MODL
[2018-03-08] MEDS: oxyCODONE IR 5 MG TAB PO PRN ×4 (01:50→17:12)
[2018-03-08] MEDS: HYDROmorphONE/DILAUDID 6 MG/30 ML PCA IV PRN ×3 (07:51→21:23)
--- NOTE | 2018-03-08 08:50 | HOSPPROG ---
Hospitalist Progress Note Assessment/Plan: 52yo M with chronic pain on opioids, multiple back surgeries with hardware, recent perforated duodenal ulcer s/p Prosper patch presents with acute onset erythema and pain in left wrist. #Left wrist arthritis: Infectious/septic arthritis vs crystalline arthropathy. Suspect the latter with chondrocalcinosis on x-ray, no fevers/leukocytosis. Unable to obtain MRI thus far due to inability of patient to lie still despite conscious sedation. - Continue empiric vancomycin, ID following, blood cultures without growth thus far - Ortho hand (Dr Aquilino Zacarias) following - MRI with general anesthesia planned for 3pm today #Acute on chronic pain - Continue dilaudid PROMOS EXECUTIVE PRODUCER for pain control #Recent duodenal perforation: Repaired with Prosper patch, now off IV abx. Unable to get nsaids if crystalline arthropathy. #H pylori: Currently being treated with triple therapy (amoxicillin had fallen of his med rec, now restarted). #Anemia: Stable, monitor #Abnormal LFTs: Has known h/o hep C and suspect related to this. Now down- trending. #Reported h/o IVDU: Denies recent use. #? h/o Right knee MSSA septic arthritis and TV endocarditis: Formal records from [place] have been requested. Reportedly completed 6 weeks of cefazolin. Diet: NPO VTE ppx: SCDs Dispo: Remain inpatient for management of above. Anticipated date of discharge unclear. Subjective: Still with lots of pain. Unable to get MRI w/conscious sedation due to inability to lie still. Objective: Vital Signs Temp Pulse Resp BP Pulse Ox 36.9 C 88 14 131/81 H 97 03/08/18 07:33 03/08/18 07:33 03/08/18 07:33 03/08/18 07:33 03/08/18 07:33 Laboratory Results 03/08/18 05:26 03/08/18 05:26 03/07/18 03/08/18 03/09/18 05:59 05:59 05:59 Intake Total 700 Output Total 1250 1650 Balance -550 -1650 PT 14.7 SEC (12.0-15.0) 03/06/18 01:43 INR 1.13 (0.83-1.16) 03/06/18 01:43 - Physical Exam Constitutional: no apparent distress, appears nourished, not in pain Eyes: PERRL, anicteric sclera, EOMI Ears, Nose, Mouth, Throat: moist mucous membranes, hearing normal, ears appear normal, no oral mucosal ulcers Cardiovascular: regular rate and rhythym, no murmur, rub, or gallop Respiratory: no respiratory distress, no rales or rhonchi, clear to auscultation Gastrointestinal: normoactive bowel sounds, soft, non-tender abdomen, no palpable masses Genitourinary: no bladder fullness, no bladder tenderness, no renal bruits Skin: other (swelling and mild erythema of left wrist, healed scar over dorsal left wrist, healed scar over right knee) Musculoskeletal: other (limited ROM in left wrist 2/2 pain) Neurologic: AAOx3 Psychiatric: interacting appropriately, not anxious, not encephalopathic, thought process linear ICD10 Worksheet Patient Problems: Problems Problem Status Onset Wrist pain, acute Acute
[2018-03-08] MEDS: buPROPion XL 150 MG TAB PO SCH (09:13)
[2018-03-08] MEDS: PANTOPRAZOLE SODIUM 40 MG TAB PO SCH (09:13)
[2018-03-08] MEDS: CLARITHROMYCIN 500 MG TAB PO SCH ×2 (09:13→21:32)
[2018-03-08] MEDS: GABAPENTIN 100 MG CAP PO SCH ×2 (09:13→17:47)
--- NOTE | 2018-03-08 10:03 | SOAPPROG ---
SOAP Progress Note Assessment/Plan: Assessment: Left hand pain r/o abscess with MRI at 3:00 pm today to determine if pt. will require an I and D vs. aspiration vs CS injection. Recommend sedation per anesthesia Keep pt. NPO Continue pain med regimen S: Pt. complaining of increasing pain, states meds not working. O: sensation to light touch intact to all digits and the entire hand, can move each finger with significant pain. 03/08/18 09:58 Objective: Vital Signs Temp Pulse Resp BP Pulse Ox 36.9 C 88 14 131/81 H 97 03/08/18 07:33 03/08/18 07:33 03/08/18 07:33 03/08/18 07:33 03/08/18 07:33 Laboratory Results 03/08/18 05:26 03/08/18 05:26 03/07/18 03/08/18 03/09/18 05:59 05:59 05:59 Intake Total 700 Output Total 1250 1650 Balance -550 -1650 PT 14.7 SEC (12.0-15.0) 03/06/18 01:43 INR 1.13 (0.83-1.16) 03/06/18 01:43 ICD10 Worksheet Patient Problems: Problems Problem Status Onset Wrist pain, acute Acute
[2018-03-08] MEDS: VANCOMYCIN 1.25 GM in NS 250 ML IV SCH (11:31)
[2018-03-08] MEDS: NS 1,000 ML IV SCH (13:34)
--- NOTE | 2018-03-08 14:03 | PCMIDPN ---
Assessment/Plan: Assessment/Plan: * Left wrist inflammatory arthropathy: Favor crystalline arthropathy as likely etiology given no improvement with antibiotic therapy, normal white blood cell count, and negative blood cultures. Review of records from hospitalizations in [place] did reveal on 1 specimen from his knee in 2013 presence of CPPD crystals. Patient is scheduled to have MRI of the wrist with general anesthesia later today to ensure no evidence of abscess or other infectious foci. If no findings to suggest infection, no opposition from Infectious Disease perspective to proceed with wrist steroid injection (recent perforated ulcer precludes NSAIDs and oral corticosteroids). Will hold further vancomycin based on these findings. Clinical findings and plan reviewed with Dr. Benitez and Dr. Zacarias as well as with patient. Time spent, greater than 35 min, which greater than half was spent in education/counseling/coordination of care related to left wrist inflammatory arthropathy and plan of care. 03/08/18 14:00 Subjective: Patient complains of exquisite left wrist pain. MRI unsuccessful yesterday with sedation. Plans for MRI later today with general anesthesia. Outside records reviewed which are pertinent for prior history of MSSA bacteremia, MSSA knee septic arthritis, and MRSA knee septic arthritis. 1 synovial specimen in 2013 showed presence of CPPD crystals from the knee. Objective: Vital Signs Temp Pulse Resp BP Pulse Ox 36.9 C 102 H 14 106/96 H 95 03/08/18 12:00 03/08/18 12:00 03/08/18 12:00 03/08/18 12:00 03/08/18 12:00 Laboratory Results 03/08/18 05:26 03/08/18 05:26 03/07/18 03/08/18 03/09/18 05:59 05:59 05:59 Intake Total 700 Output Total 1250 1650 Balance -550 -1650 ESR 15 MM/HR (0-20) 03/06/18 01:43 C-Reactive Protein 58.4 mg/L (<10.0) H 03/06/18 01:43 Vancomycin # 3 Blood cultures x2 no growth - Physical Exam General Appearance: alert, no apparent distress EENT: No scleral icterus, No conjunctival petechiae Cardiac/Chest: tachycardia, No systolic murmur Extremities: inflammation (Dorsal surface of left hand, wrist and forearm with edema and exquisite tenderness; minimal overlying erythema; overlying warmth present; pain with range of motion of digits or wrist and over upper forearm) ICD10 Worksheet Patient Problems: Problems Problem Status Onset Wrist pain, acute Acute
[2018-03-08] MEDS ORDERED: PROPOFOL/EMULSION 500 MG/50 ML BOTTLE IV ONE (14:06)
[2018-03-08] MEDS ORDERED: PROPOFOL 200 MG/20 ML VIAL ONE ×2 (14:06→21:59)
[2018-03-08] MEDS ORDERED: SUCCINYLCHOLINE CHLORIDE 200 MG/10 ML VIAL ONE (15:07)
[2018-03-08] MEDS ORDERED: LR 500 ML IV PRN ×2 (15:08→23:24)
[2018-03-08] MEDS ORDERED: NALOXONE HCL 0.4 MG/ML INJ IVP PRN ×2 (15:08→23:24)
[2018-03-08] MEDS ORDERED: oxyCODONE IR 5 MG TAB PO PRN ×2 (15:08→23:24)
[2018-03-08] MEDS ORDERED: DEXAMETHASONE 4 MG/ML VIAL IVP PRN (15:08)
[2018-03-08] MEDS ORDERED: PROMETHAZINE HCL 25 MG/ML INJ IVP PRN ×2 (15:08→23:24)
[2018-03-08] MEDS ORDERED: ONDANSETRON 4 MG/2 ML VIAL IVP PRN ×2 (15:08→23:24)
--- NOTE | 2018-03-08 15:08 | PDANEPAE ---
ANE Past Medical History - Pulmonary History Hx Oxygen in Use at Home: No Hx Sleep Apnea: No Sleep Apnea Screening Result - Last Documented: Negative - Endocrine History Hx Diabetes: No - Chronic Pain History Chronic Pain: Yes ANE Review of Systems Review of Systems: ANE Patient History - Allergies Allergies/Adverse Reactions: acetaminophen [From Tylenol] Allergy (Verified 03/06/18 07:27) NSAIDS (Non-Steroidal Anti-Inflamma Allergy (Verified 03/06/18 07:27) hx duodenal ulcer - Home Medications Home medications: home medication list seen and reviewed Home Medications: Clarithromycin [Biaxin (*)] 500 mg PO BID 03/06/18 [Last Taken 03/05/18 21:00] Gabapentin [Neurontin 100 MG (*)] 200 mg PO TID 03/06/18 [Last Taken 03/05/18 21 :00] Oxycodone Ir 10mg 10 mg PO Q4HRS PRN 03/06/18 [Last Taken Unknown] Pantoprazole Sodium [Protonix 40mg (*)] 40 mg PO DAILY 03/06/18 [Last Taken 08/17] buPROPion XL [Wellbutrin Xl] 150 mg PO DAILY 03/06/18 [Last Taken 03/05/18] traZODone [traZODONE 50MG (*)] 50 mg PO HS 03/06/18 [Last Taken 03/05/18] Amoxicillin Trihydrate [Amoxil] 1,000 mg PO BID 03/08/18 [Last Taken Unknown] - NPO status NPO Status: no food or drink >8 hours - Anes Hx Anes Hx: no prior problems - Smoking Hx Smoking Status: Never smoked - Alcohol Use Alcohol Use: None ANE Labs/Vital Signs - Labs Result Diagrams: 03/08/18 05:26 03/08/18 05:26 - Vital Signs Blood Pressure: 120/79 Heart Rate: 97 Respiratory Rate: 14 O2 Sat (%): 95 Height: 170.18 cm Weight: 72.12 kg ANE Physical Exam - Airway Neck exam: FROM Mallampati Score: Class 2 Mouth exam: normal dental/mouth exam - Pulmonary Pulmonary: no respiratory distress, no rales or rhonchi, clear to auscultation - Cardiovascular Cardiovascular: regular rate and rhythym, no murmur, rub, or gallop - ASA Status ASA Status: II ANE Anesthesia Plan Anesthesia Plan: GA w LMA
[2018-03-08] MEDS ORDERED: GADOBUTROL 10 ML VIAL IVP ONE (15:50)
--- NOTE | 2018-03-08 16:59 | POSTANESTH ---
Post Anesthetic Evaluation Cardiovascular Status: Normal, Stable, Similar to Pre-Op Cond Respiratory Status: Normal, Stable, Similar to Pre-op Cond. Level of Consciousness/Mental Status: Can Participate in Eval, Mildly Sleepy, Arousable Pain Control: Adequate, Prn Tx Ordered Nausea/Vomiting Control: Adequate, Prn Tx Ordered Complications Possibly Related to Anesthesia: None Noted
[2018-03-08] MEDS ORDERED: HYDROmorphONE/DILAUDID 2 MG/ML INJ ONE (17:03)
[2018-03-08] MEDS: HYDROmorphONE/DILAUDID 2 MG/ML INJ IVP PRN ×2 (17:08→17:19)
[2018-03-08] MEDS ORDERED: oxyCODONE IR 5 MG TAB ONE (17:11)
--- NOTE | 2018-03-08 18:35 | SOAPPROG ---
SOAP Progress Note Assessment/Plan: Assessment:Large fluid collections Plan: Will drain with Formal I + D tonight. 03/07/18 16:57 03/08/18 18:35 Objective: Vital Signs Temp Pulse Resp BP Pulse Ox 37.1 C 92 20 130/79 H 93 03/08/18 17:40 03/08/18 17:40 03/08/18 17:40 03/08/18 17:40 03/08/18 17:40 Laboratory Results 03/08/18 05:26 03/08/18 05:26 03/07/18 03/08/18 03/09/18 05:59 05:59 05:59 Intake Total 700 430 Output Total 1250 5 Balance -550 -1595 PT 14.7 SEC (12.0-15.0) 03/06/18 01:43 INR 1.13 (0.83-1.16) 03/06/18 01:43 MRI Completed. Large fluid collections in Carpal Tunnel from distal forearm to mid lieberman space , DRUJ and to a lesser degree in Radio Carpal Joint and inter- carpal joints. Significant fluid also infiltrating sub Q fat (cellulitis like) in radial wrist/ hand and Thumb. ICD10 Worksheet Patient Problems: Problems Problem Status Onset Wrist pain, acute Acute
[2018-03-08 19:56] LABS: CREATINE KINASE 22 IU/L (0-224)
[2018-03-08] MEDS ORDERED: MIDAZOLAM 2 MG/2 ML VIAL ONE (21:57)
[2018-03-08] MEDS ORDERED: KETAMINE 200 MG/20 ML VIAL ONE (21:59)
[2018-03-08] MEDS ORDERED: LIDOCAINE 2% 5 ML SDV ONE (21:59)
[2018-03-08] MEDS ORDERED: ONDANSETRON 4 MG/2 ML VIAL ONE (21:59)
[2018-03-08] MEDS ORDERED: KETOROLAC 30 MG/1 ML SDV ONE (21:59)
[2018-03-08] MEDS ORDERED: MIDAZOLAM 2 MG/2 ML VIAL IVP ONE (22:08)
--- NOTE | 2018-03-08 22:11 | PDANEPAE ---
ANE Past Medical History - Pulmonary History Hx Oxygen in Use at Home: No Hx Sleep Apnea: No Sleep Apnea Screening Result - Last Documented: Negative - Endocrine History Hx Diabetes: No Obesity: no - Chronic Pain History Chronic Pain: Yes ANE Review of Systems Review of Systems: ANE Patient History - Allergies Allergies/Adverse Reactions: acetaminophen [From Tylenol] Allergy (Verified 03/06/18 07:27) NSAIDS (Non-Steroidal Anti-Inflamma Allergy (Verified 03/06/18 07:27) hx duodenal ulcer - Home Medications Home medications: home medication list seen and reviewed Home Medications: Clarithromycin [Biaxin (*)] 500 mg PO BID 03/06/18 [Last Taken 03/05/18 21:00] Gabapentin [Neurontin 100 MG (*)] 200 mg PO TID 03/06/18 [Last Taken 03/05/18 21 :00] Oxycodone Ir 10mg 10 mg PO Q4HRS PRN 03/06/18 [Last Taken Unknown] Pantoprazole Sodium [Protonix 40mg (*)] 40 mg PO DAILY 03/06/18 [Last Taken 08/17] buPROPion XL [Wellbutrin Xl] 150 mg PO DAILY 03/06/18 [Last Taken 03/05/18] traZODone [traZODONE 50MG (*)] 50 mg PO HS 03/06/18 [Last Taken 03/05/18] Amoxicillin Trihydrate [Amoxil] 1,000 mg PO BID 03/08/18 [Last Taken Unknown] - NPO status NPO Status: no food or drink >8 hours NPO Since - Liquids (Date): 03/08/18 NPO Since - Liquids (Time): 00:00 NPO Since - Solids (Date): 03/08/18 NPO Since - Solids (Time): 00:00 - Anes Hx Anes Hx: no prior problems - Smoking Hx Smoking Status: Never smoked - Alcohol Use Alcohol Use: None ANE Labs/Vital Signs - Labs Result Diagrams: 03/08/18 05:26 03/08/18 05:26 - Vital Signs Blood Pressure: 123/89 Heart Rate: 104 Respiratory Rate: 14 O2 Sat (%): 98 Height: 170.18 cm Weight: 72.12 kg ANE Physical Exam - Airway Neck exam: FROM Mallampati Score: Class 1 Mouth exam: normal dental/mouth exam - Pulmonary Pulmonary: no respiratory distress, no rales or rhonchi, clear to auscultation - Cardiovascular Cardiovascular: regular rate and rhythym, no murmur, rub, or gallop - ASA Status ASA Status: II ANE Anesthesia Plan Anesthesia Plan: GA w LMA
[2018-03-08] MEDS ORDERED: fentaNYL 100 MCG/2 ML INJ IVP PRN (23:24)
[2018-03-08] MEDS ORDERED: DIAZEPAM 5 MG/ML 1 ML SYR IVP PRN (23:24)
[2018-03-08] MEDS ORDERED: BUPIVACAINE/EPI 0.5% 30 ML SDV ONE (23:31)
--- NOTE | 2018-03-08 23:55 | POSTOPPROG ---
Post Op Note Date of Operation: 03/08/18 Surgeon: Justyn Zacarias Anesthesiologist: Dorei Franco Anesthesia: LMA Pre-op Diagnosis: Abscess wrist and carpal tunnel Post-op Diagnosis: Same Procedure: Carpal Tunnel Release, Flexor Tenosynovectomy all forearm flexor tendons. I Findings: See Op note Inf/Abcess present in the surg proc area at time of surgery?: Yes Depth: Organ Space EBL: Minimal Drains: Hemovac
--- NOTE | 2018-03-09 00:01 | SOAPPROG ---
SOAP Progress Note Assessment/Plan: Assessment:Large fluid collections Plan: Will drain with Formal I + D tonight. 03/07/18 16:57 03/08/18 18:35 Objective: Vital Signs Temp Pulse Resp BP Pulse Ox 36.9 C 104 H 14 123/89 H 98 03/08/18 22:07 03/08/18 22:11 03/08/18 22:11 03/08/18 22:11 03/08/18 22:11 Laboratory Results 03/08/18 05:26 03/08/18 05:26 03/07/18 03/08/18 03/09/18 05:59 05:59 05:59 Intake Total 700 430 Output Total 1250 2475 Balance -550 -2045 PT 14.7 SEC (12.0-15.0) 03/06/18 01:43 INR 1.13 (0.83-1.16) 03/06/18 01:43 Operative Findings: Remarkably thick and dense tenosynovitis on Flexor Tendons across wrist. No large abscess found but thin turbid yellow fluid emanating from mid carpal joint, DRUJ and Radiocarpal joints. Minimal thick white cream cheese like substance found in mid carpal joint. Distal Scaphoid fragmented and extruded into distal carpal tunnel (removed and sent to path). Path specimens(2), Cultures for A&An,AFB and Fungus, tissue and fluid for Crystals. ICD10 Worksheet Patient Problems: Problems Problem Status Onset Wrist pain, acute Acute
[2018-03-09] MEDS: oxyCODONE IR 5 MG TAB PO PRN ×6 (00:43→20:23)
[2018-03-09] MEDS: GABAPENTIN 100 MG CAP PO SCH ×4 (00:44→22:31)
[2018-03-09] MEDS: DAPTOmycin 500 MG in NS 100 ML IV SCH ×2 (01:02→22:28)
[2018-03-09] MEDS: traZODone 50 MG TAB PO SCH ×2 (01:03→22:32)
[2018-03-09] MEDS: NS 1,000 ML IV SCH ×2 (02:43→10:33)
[2018-03-09] MEDS ORDERED: LACTULOSE 20 GM/30 ML UDCUP PO PRN (05:32)
[2018-03-09] MEDS ORDERED: MAGNESIUM HYDROXIDE 30 ML UDCUP PO PRN (05:32)
[2018-03-09] MEDS ORDERED: POLYETHYLENE GLYCOL 3350 17 GM PKT PO PRN (05:32)
[2018-03-09] MEDS ORDERED: BISACODYL 10 MG SUPP PR PRN (05:32)
--- NOTE | 2018-03-09 07:09 | GOP ---
DATE OF OPERATION: 03/08/2018 SURGEON: Justyn Zacarias MD PREOPERATIVE DIAGNOSIS: Tenosynovitis and fluid collection, carpal tunnel, radiocarpal joint, distal radioulnar joint and intercarpal joints. POSTOPERATIVE DIAGNOSIS: Tenosynovitis and fluid collection, carpal tunnel, radiocarpal joint, dista l radioulnar joint and intercarpal joints. PROCEDURE PERFORMED: 1. Carpal tunnel release. 2. Tenosynovectomy all flexor tendons of the forearm traversing the wrist. 3. Arthrotomy with debridement, distal radioulnar joint. 4. Arthrotomy and debridement of radiocarpal joint. 5. Irrigation and debridement of intercarpal joint. FINDINGS: Remarkably dense thick synovitis was identified within the carpal tunnel. All flexor tend ons were involved. His median nerve was quite remarkably compressed. The caliber of the nerve under the transverse carpal ligament was roughly 1/3 of the caliber proximal and distal to this with remar kable hyperemia within the compressed portion of the nerve. The extremely dense synovitis of the fle xor tendons was debrided sequentially from ulnar to radial including the FPL. He had ruptured and cr eated an arthrotomy due to the degenerative changes at the palmar aspect of the distal radioulnar namrata nt, at the radiocarpal joint and most especially at the midcarpal joint. Bone fragments from the dis hilary pole of the scaphoid had extruded through the volar ligamentous complex and capsule into the carp al tunnel. I sent cultures from the initial presentation of the synovitis with a swab of the more li quid portion of this. I sent an additional swab of the deeper tissue. This was for anaerobes, aerob es, acid-fast bacilli, and fungus. There was no karen thick creamy pus identified. Mostly this was a very dense reactive synovial tissue adherent to the flexor tendons with some yellowish clear slight ly turbid fluid identified largely coming from the defects in the mid carpal joint which was open bot h on the radial and ulnar side. I was able to visualize the lunocapitate joint easily through the re nt of the eroded tissue on the palmar surface. I also sent tissue for gross and microscopic evaluati on and crystal analysis. The flexor tendons were fully debrided and a suction drain was ultimately p laced. INDICATIONS: The patient is a 52-year-old gentleman presents to the hospital with a several day onse t of significant left wrist pain. With difficulty we ultimately obtained MRI evaluation under genera l anesthetic. This showed what appeared to be a significant fluid collection around the flexor tendo ns, distended distal radioulnar joint and distended radiocarpal joint as well as intercarpal joints. It also appeared that he had dense fluid infiltrating the subcutaneous adipose tissue around the rad ial border of the thumb and hand. He was brought to the operating room after completing his MRI for emergent I and D procedure as noted above. DESCRIPTION OF PROCEDURE: After routinely checking the patient's identification and consent and the successful induction of LMA general anesthetic, the patient's left upper extremity was prepped and dr aped in usual standard fashion. I exsanguinated the limb with elevation and light compression across the forearm but not the hand. Pneumatic tourniquet previously placed about the proximal left arm wa s inflated to 250 mmHg. A longitudinal incision in the thenar flexion crease zigzagging slightly acr oss the wrist flexion crease and then extending longitudinally in the central aspect of the volar dis hilary forearm was carried sharply through the skin. Spread bluntly through the subcutaneous layer. Th e antebrachial fascia was markedly distended proximal to the carpal tunnel. I opened this sharply an d then extended this and performed a carpal tunnel release by sharply releasing the transverse carpal ligament. I extended this distal to the transverse carpal ligament into the palm for full exposure of the flexor tendons. The synovitis was quite dense and prolific. As I dissected from proximal to distal and removed the synovial tissue from the flexor tendons, I encountered yellow turbid fluid as I crossed the region of the carpus. Once I had explored the floor of this, I identified the ruptures of the joint capsule at the midcarpal joint. Emanating from this did appear to be a white cream gabino ebony like material. There was a very minimal amount of this material, but there was significant amoun t of turbid yellow fluid. There was no identifiable foul smell from this. Once the tendons had been debrided thoroughly I then explored the defect in the volar capsule. There was a perforation in the volar aspect of the distal radioulnar joint and also at the radiocarpal joint, but most significantl y at the midcarpal joint. I irrigated this thoroughly through all openings. I irrigated the carpal tunnel thoroughly. I did not close any of the defects in the joint capsules. The skin wound was yaniv sed with 4-0 nylon sutures over a suction drain exiting the proximal aspect of the wound. A sterile bulky dressing was applied followed by compressive wrap. 0.25% Marcaine plus epinephrine was infiltra asaf down the drain tract for postoperative comfort. He was reversed from his anesthetic and extubate d in the operating room. He tolerated the procedure well. There were no complications. /[id number]/MODL
[2018-03-09] MEDS: CLARITHROMYCIN 500 MG TAB PO SCH ×2 (08:51→20:23)
[2018-03-09] MEDS: PANTOPRAZOLE SODIUM 40 MG TAB PO SCH (08:52)
[2018-03-09] MEDS: buPROPion XL 150 MG TAB PO SCH (08:52)
[2018-03-09] MEDS: LORazepam 0.5 MG TAB PO PRN (09:12)
--- NOTE | 2018-03-09 11:23 | SOAPPROG ---
SOAP Progress Note Assessment/Plan: Assessment: Left hand pain s/p I and D left hand with Dr. Zacarias 03/08/18. MRI yesterday showed large fluid collections, samples taken and sent to pathology. Awaiting culture results, crystal count. Continue pain med regimen Continue to Ice Continue elevation Leave posterior splint in place S: Pt. states that pain is about the same at this point. He states that he is very sleepy. No numbness or tingling of the fingers, continues to have stiffness of the fingers. O: Pt. appears to be resting comfortably in NAD. Is sleepy, but answering questions appropriately. Fingers appear to be swollen, but he has brisk capillary refill, intact sensation to light touch to all digits, can move each finger with mild pain upon movement. 03/08/18 09:58 03/09/18 11:17 Objective: Vital Signs Temp Pulse Resp BP Pulse Ox 36.9 C 94 16 129/92 H 95 03/09/18 07:20 03/09/18 09:13 03/09/18 09:13 03/09/18 09:13 03/09/18 09:13 Microbiology 03/08/18 22:55 Gram Stain - Final Wrist - Eswab 03/08/18 22:38 Gram Stain - Final Wrist - Eswab Laboratory Results 03/08/18 05:26 03/08/18 05:26 03/08/18 03/09/18 03/10/18 05:59 05:59 05:59 Intake Total 006 477 4862 Output Total 1250 2825 510 Balance -550 -2395 990 PT 14.7 SEC (12.0-15.0) 03/06/18 01:43 INR 1.13 (0.83-1.16) 03/06/18 01:43 ICD10 Worksheet Patient Problems: Problems Problem Status Onset Wrist pain, acute Acute
--- NOTE | 2018-03-09 12:15 | SOAPPROG ---
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 Reactive tenosynovitis in Carpal Tunnel was intense and prolific. Plan: Watch Cultures, Leave drain in for 3-4 days. Mobilize digits. Wrist joints (radio carpal and Intercarpal) are largely devoid of articular cartilage. Will treat in wrist spit for stability for 1-2 months. No steroids until wound is healed. Absent infection, this will take several months to stabilize. 03/07/18 16:57 03/08/18 18:35 03/09/18 12:09 Objective: Vital Signs Temp Pulse Resp BP Pulse Ox 36.9 C 94 16 129/92 H 95 03/09/18 07:20 03/09/18 09:13 03/09/18 09:13 03/09/18 09:13 03/09/18 09:13 Microbiology 03/08/18 22:55 Gram Stain - Final Wrist - Eswab 03/08/18 22:38 Gram Stain - Final Wrist - Eswab Laboratory Results 03/08/18 05:26 03/08/18 05:26 03/08/18 03/09/18 03/10/18 05:59 05:59 05:59 Intake Total 390 439 7155 Output Total 1250 2825 510 Balance -550 -2395 990 PT 14.7 SEC (12.0-15.0) 03/06/18 01:43 INR 1.13 (0.83-1.16) 03/06/18 01:43 Labs reviewed. Looks like CPPDD. ICD10 Worksheet Patient Problems: Problems Problem Status Onset Wrist pain, acute Acute
--- NOTE | 2018-03-09 13:19 | PCMIDPN ---
Assessment/Plan: # R wrist inflammatory arthropathy, reviewed MRI and operative report, cream cheese like material seen intra-op most c/w crystalline arthropathy --difficult IV access, and refusal to allow for vancomycin measurement therefore on daptomycin for 48hours post op to completely r/o superimposed infection. # Recent PUD/H Pylori: on Sandra, Amox, no abdominal pain Meds Daptomycin 500mg IV daily #2 micro 03/06 blood cx (2) NGTD 03/08 OR cx : gram stain neg; cx pending Subjective: Patient states left wrist pain is much improved Objective: Vital Signs Temp Pulse Resp BP Pulse Ox 37.2 C 101 H 19 112/71 89 L 03/09/18 12:11 03/09/18 12:11 03/09/18 12:11 03/09/18 12:11 03/09/18 12:11 Microbiology 03/09/18 23:05 Mycobacterial Smear (STEVE) - Final Wrist - Tissue 03/08/18 22:55 Gram Stain - Final Wrist - Eswab 03/08/18 22:38 Gram Stain - Final Wrist - Eswab Laboratory Results 03/08/18 05:26 03/08/18 05:26 03/08/18 03/09/18 03/10/18 05:59 05:59 05:59 Intake Total 367 122 9451 Output Total 1250 2825 1610 Balance -550 -2395 -110 ESR 15 MM/HR (0-20) 03/06/18 01:43 C-Reactive Protein 58.4 mg/L (<10.0) H 03/06/18 01:43 - Physical Exam General Appearance: alert, no apparent distress Respiratory: lungs clear, No accessory muscle use Neck: supple Cardiac/Chest: regular rate, rhythm Extremities: other (Dressing in place left wrist, normal capillary refill) Skin: other (Multiple tattoos) Neuro/Psych: alert, normal mood/affect, oriented x 3 - Time Spent With Patient Time Spent with Patient: greater than 25 minutes Time Spent with Patient: Greater than 25 minutes spent on this patients care, greater than 50% of time spent counseling, educating, and coordinating care regarding the above mentioned plan. ICD10 Worksheet Patient Problems: Problems Problem Status Onset Wrist pain, acute Acute
--- NOTE | 2018-03-09 19:16 | HOSPPROG ---
Hospitalist Progress Note Assessment/Plan: 52yo M with chronic pain on opioids, multiple back surgeries with hardware, recent perforated duodenal ulcer s/p Prosper patch presents with acute onset erythema and pain in left wrist. # acute inflammatory arthropathy of left wrist with extensive tenosynovitis, cloudy fluid and thick whitish material removed: * Now status post surgical exploration with debridement and washout * CPPD crystals present and surgical findings consistent with that * Infection still not entirely rule out with cultures pending, but appears somewhat less likely #Acute on chronic pain - Continue dilaudid [employer] for pain control #Recent duodenal perforation: Repaired with Prosper patch 2 weeks ago NO NSAIDS DUE TO THIS #H pylori: Currently being treated with triple therapy (amoxicillin had fallen of his med rec, now restarted). #Anemia: Stable, monitor #Reported h/o IVDU: Denies recent use. #? 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 Reportedly completed 6 weeks of cefazolin. PLANS: * Continue empiric vancomycin, ID following, blood cultures without growth thus far * NO NSAIDS DUE TO HIS RECENT PERFORATED DUODENAL ULCER * Will review treatment options for CPPD with Orthopedics * Will need splint and very careful follow-up with Orthopedics SUBJECTIVE: Notes significant improvement in pain No chills or sweats OBJECTIVE Vitals reviewed: Stable without fever Exam: alert oriented relaxed skin warm dry color ok resps not labored lungs clear BSs heart regular abd soft nondistended nontender, bowel sounds present limbs hand wrist forearm in splints, good circulation to fingers and good sensation there, good color iv site ok Laboratory data: Crystal analysis of fluid from surgery shows CPPD crystals Microbiology: G stain negative cultures pending with no growth to date Objective: Vital Signs Temp Pulse Resp BP Pulse Ox 36.9 C 108 H 14 113/72 95 03/09/18 16:00 03/09/18 16:00 03/09/18 16:00 03/09/18 16:00 03/09/18 16:00 Microbiology 03/09/18 23:05 Mycobacterial Smear (STEVE) - Final Wrist - Tissue 03/08/18 22:55 Gram Stain - Final Wrist - Eswab 03/08/18 22:38 Gram Stain - Final Wrist - Eswab Laboratory Results 03/08/18 05:26 03/08/18 05:26 03/08/18 03/09/18 03/10/18 06:59 06:59 06:59 Intake Total 275 196 1040 Output Total 9993 1017 5259 Balance -550 -5356 -3391 PT 14.7 SEC (12.0-15.0) 03/06/18 01:43 INR 1.13 (0.83-1.16) 03/06/18 01:43 - Time Spent With Patient Time Spent with Patient: greater than 35 minutes Time Spent with Patient: Greater than 35 minutes spent on this patients care, greater than 50% of time spent counseling, educating, and coordinating care regarding the above mentioned plan. ICD10 Worksheet Patient Problems: Problems Problem Status Onset Wrist pain, acute Acute
[2018-03-10] MEDS: oxyCODONE IR 5 MG TAB PO PRN ×7 (01:02→22:53)
[2018-03-10] MEDS: NS 1,000 ML IV SCH (05:35)
[2018-03-10] MEDS: GABAPENTIN 100 MG CAP PO SCH ×3 (08:33→22:52)
[2018-03-10] MEDS: PANTOPRAZOLE SODIUM 40 MG TAB PO SCH (08:34)
[2018-03-10] MEDS: buPROPion XL 150 MG TAB PO SCH (08:34)
[2018-03-10] MEDS: CLARITHROMYCIN 500 MG TAB PO SCH ×2 (08:34→20:41)
--- NOTE | 2018-03-10 10:10 | SOAPPROG ---
SOAP Progress Note Assessment/Plan: Assessment: Left hand pain s/p I and D left hand with Dr. Zacarias 03/08/18. MRI yesterday showed large fluid collections, samples taken and sent to pathology. Awaiting crystal count still at this time. Will continue to monitor cultures, negative TD. Continue pain med regimen Continue to ice Continue elevation Leave posterior splint in place Maintain drain till Tuesday. Mobilize digits, NWB and no heavy lifting. Wrist joints (radio carpal and Intercarpal) are largely devoid of articular cartilage. Will treat in wrist spit for stability for 1-2 months. No steroids until wound is healed. Advised patient to watch for worsening pain, abnormal numbness/tingling, worsening change in distal ROM or strength, cramping in his calves/ankles, worsening change in heat/color of extremities or around wound site, abnormal swelling, fever, chills, abnormal bleeding/oozing/discharge and to seek immediate medical attention if seen. Patient seen/examined in conjunction with Dr. Zacarias. Subjective: Alone in room. Able to respond appropriately to questions. Has passed flatus. No BM. States pain is overall well controlled at this time. He has been able to eat and drink normally today. No further fevers, chest, pain, SOB. Denies worsening numbness/tingling, worsening change in distal ROM or strength, cough, congestion, dyspnea, cramping in his calves/ankles, abnormal bleeding/oozing/ discharge from wound site. Has been compliant in NWB and no heavy lifting. Objective: Vital Signs Temp Pulse Resp BP Pulse Ox 37.1 C 93 17 116/76 97 03/10/18 06:38 03/10/18 06:38 03/10/18 06:38 03/10/18 06:38 03/10/18 06:38 Microbiology 03/08/18 22:38 Gram Stain - Final Wrist - Eswab 03/08/18 22:55 Gram Stain - Final Wrist - Eswab 03/09/18 23:05 Mycobacterial Smear (STEVE) - Final Wrist - Tissue Laboratory Results 03/08/18 05:26 03/08/18 05:26 03/09/18 03/10/18 03/11/18 05:59 05:59 05:59 Intake Total 430 2000 Output Total 9739 9800 550 Balance -0100 -3833 -550 PT 14.7 SEC (12.0-15.0) 03/06/18 01:43 INR 1.13 (0.83-1.16) 03/06/18 01:43 Patient is alert, comfortable, conversing and answering questions appropriately , NAD. Exam of the LUE reveals no erythema, ecchymosis or calor around dressing. Has 1 + non-pitting edema to left hand; all compartments soft in LUE. Limited AROM of L hand due to swelling, is able to wiggle fingers. Gross sensation intact with no focal deficits. Brisk cap refill b/l. Calves soft/supple and NTTP b/l with negative b/l Homans. Brisk cap refill b/l. ICD10 Worksheet Patient Problems: Problems Problem Status Onset Wrist pain, acute Acute
--- NOTE | 2018-03-10 12:30 | PCMIDPN ---
Assessment/Plan: # R wrist inflammatory arthropathy, reviewed MRI and operative report, cream cheese like material seen intra-op most c/w crystalline arthropathy --difficult IV access, and refusal to allow for vancomycin measurement therefore on daptomycin for 48hours post op to completely r/o superimposed infection. --if cx negative at 48hrs (03/11), ok from ID standpoint to dc tomorrow w dx of CPPD # Recent PUD/H Pylori: on Sandra, Amox, no abdominal pain Meds Daptomycin 500mg IV daily #3 micro 03/06 blood cx (2) NGTD 03/08 OR cx : gram stain neg; cx NGTD Subjective: patient w L wrist pain but still better than pre-op anxious to leave hospital [facility] Objective: Vital Signs Temp Pulse Resp BP Pulse Ox 37.1 C 93 17 116/76 97 03/10/18 06:38 03/10/18 06:38 03/10/18 06:38 03/10/18 06:38 03/10/18 06:38 Microbiology 03/08/18 22:38 Gram Stain - Final Wrist - Eswab 03/08/18 22:55 Gram Stain - Final Wrist - Eswab 03/09/18 23:05 Mycobacterial Smear (STEVE) - Final Wrist - Tissue Laboratory Results 03/08/18 05:26 03/08/18 05:26 03/09/18 03/10/18 03/11/18 05:59 05:59 05:59 Intake Total 430 2000 Output Total 2825 4950 550 Balance -2395 -2950 -550 ESR 15 MM/HR (0-20) 03/06/18 01:43 C-Reactive Protein 58.4 mg/L (<10.0) H 03/06/18 01:43 - Physical Exam General Appearance: alert, no apparent distress EENT: No thrush Respiratory: lungs clear, No accessory muscle use Neck: supple Cardiac/Chest: regular rate, rhythm, No systolic murmur Extremities: other (LUE: large surgical dressing in place, GALINDO drain) Abdomen: non-tender, soft, other (well healed midline incision) Skin: warm/dry, No diaphoresis, No jaundice, No rash Neuro/Psych: alert, normal mood/affect, oriented x 3 - Line/s PIV Lines: other (R posterior forearm), No drainage, No erythema - Time Spent With Patient Time Spent with Patient: greater than 25 minutes Time Spent with Patient: Greater than 25 minutes spent on this patients care, greater than 50% of time spent counseling, educating, and coordinating care regarding the above mentioned plan. ICD10 Worksheet Patient Problems: Problems Problem Status Onset Wrist pain, acute Acute
--- NOTE | 2018-03-10 14:21 | HOSPPROG ---
Hospitalist Progress Note Assessment/Plan: 52yo M with chronic pain on opioids, multiple back surgeries with hardware, recent perforated duodenal ulcer s/p Prosper patch presents with acute onset erythema and pain in left wrist. # acute inflammatory arthropathy of left wrist with extensive tenosynovitis, cloudy fluid and thick whitish material removed: * Now status post surgical exploration with debridement and washout * CPPD crystals present and surgical findings consistent with that * Infection still not entirely rule out with cultures pending, but appears less likely #Acute on chronic pain - Continue dilaudid QUALITY TESTER for pain control #Recent duodenal perforation: Repaired with Prosper patch 2 weeks ago NO NSAIDS DUE TO THIS * continue PPI, no nsaids #H pylori: Currently being treated with triple therapy (amoxicillin had fallen of his med rec, now restarted). #Reported h/o IVDU: Denies recent use. #? 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 Reportedly completed 6 weeks of cefazolin. PLANS: * Continue empiric vancomycin, ID following, blood cultures without growth thus far * NO NSAIDS DUE TO HIS RECENT PERFORATED DUODENAL ULCER * Will review treatment options for CPPD with Orthopedics * Will need splint and very careful follow-up with Orthopedics SUBJECTIVE: again pain notably better since surgery no chills or sweats OBJECTIVE Vitals reviewed: Stable without fever Exam: alert oriented relaxed skin warm dry color ok resps not labored lungs clear BSs heart regular abd soft nondistended nontender, bowel sounds present limbs hand wrist forearm in splints, good circulation to fingers and good sensation there, good color iv site ok Microbiology: G stain negative cultures pending with no growth to date Objective: Vital Signs Temp Pulse Resp BP Pulse Ox 37.1 C 93 17 116/76 97 03/10/18 06:38 03/10/18 06:38 03/10/18 06:38 03/10/18 06:38 03/10/18 06:38 Microbiology 03/08/18 22:38 Gram Stain - Final Wrist - Eswab 03/08/18 22:55 Gram Stain - Final Wrist - Eswab 03/09/18 23:05 Mycobacterial Smear (STEVE) - Final Wrist - Tissue Laboratory Results 03/08/18 05:26 03/08/18 05:26 03/09/18 03/10/18 03/11/18 06:59 06:59 06:59 Intake Total 430 1999 Output Total 2825 4950 550 Balance -2395 -2950 -550 PT 14.7 SEC (12.0-15.0) 03/06/18 01:43 INR 1.13 (0.83-1.16) 03/06/18 01:43 ICD10 Worksheet Patient Problems: Problems Problem Status Onset Wrist pain, acute Acute
--- NOTE | 2018-03-10 17:08 | ASMTCMCOM ---
CM Note CM Note Notes: Pt had MRI and I & D. Pt now on IV dapto. Pt likely has pseudogout, is NWB and no heavy lifting. ID and ortho consulting. CM to follow for d/c needs. Date Signed: 03/10/2018 04:39 PM Electronically Signed By:ALIA Li
[2018-03-10] MEDS: traZODone 50 MG TAB PO SCH (20:41)
[2018-03-10] MEDS: DAPTOmycin 500 MG in NS 100 ML IV SCH (22:52)
[2018-03-11] MEDS: oxyCODONE IR 5 MG TAB PO PRN ×7 (02:25→21:29)
--- NOTE | 2018-03-11 07:47 | PDDCSUM ---
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 Justyn Zacarias orthopedics Dr. Kristy Vizcarra infectious disease PROCEDURES: MRI of left hand and wrist under general anesthesia HOSPITAL COURSE SUMMARY: This patient presented to the hospital with severe pain and swelling decreased range of motion in his left wrist. There was fevers high as 38.0. There is some suspicion for possible infection but the cause of this illness was uncertain. The patient does have a previous history of fracture with surgery and hardware in place the wrist, and there is a remote history of IV drug use as well. There is attempt to get MRI scan but the patient was unable to do the procedure we finally had to use general anesthesia to get the MRI which showed evidence of flexor tenosynovitis and myositis, along with capsular inflammation at the wrist. He underwent open surgery with Dr. Justyn Zacarias. A carpal tunnel release was performed along with exploration of the wrist, tenosynovectomy flexor tendons, arthrotomy and debridement of distal radial ulnar joint and radiocarpal joint, and irrigation and debridement of intercarpal joint. There was removal of small amount of slightly turbid yellow fluid and this very small amount of a wait cheeselike material, and these were sent for cultures and mycobacterial studies. Calcium pyrophosphate crystals were identified in the fluids from his joint. Notably there were old bone fragments present from his previous injury. He was started on some empiric antibiotics pending initial culture results. Following surgery the patient had dramatic decrease in pain. He has not been febrile here and cultures have all been negative any continues to feel much better. At this point it is felt the most likely has CPPD disease. PENDING TEST RESULTS: Final wound culture results are all pending with no growth at the time of discharge MEDICATION CHANGES: FOLLOW-UP PLAN: With Dr. Justyn Zacarias on Greater than 35 minutes bedside and care coordination time today
[2018-03-11] MEDS: PANTOPRAZOLE SODIUM 40 MG TAB PO SCH (08:19)
[2018-03-11] MEDS: CLARITHROMYCIN 500 MG TAB PO SCH ×2 (08:20→22:37)
[2018-03-11] MEDS: GABAPENTIN 100 MG CAP PO SCH ×3 (08:20→22:37)
[2018-03-11] MEDS: buPROPion XL 150 MG TAB PO SCH (08:20)
--- NOTE | 2018-03-11 09:46 | ASMTCMCOM ---
CM Note CM Note Notes: Spoke with pt as he may d/c today. Pt reports he has no friends/family home he can d/c to. Pt declines longterm bed, reports it will be too challenging to have to leave during days. Pt does not qualify for medical respite. Pt does not want to spend money on a hotel because his medical condition will not change soon. Pt verbalizes he wants to stay at [facility] until Tuesday. When asked what will change by Tuesday, pt reports by Tuesday he can make a plan to get back to [place] where he has support. CM to follow. Date Signed: 03/11/2018 09:45 AM Electronically Signed By:ALIA Li
--- NOTE | 2018-03-11 15:25 | SOAPPROG ---
SOAP Progress Note Assessment/Plan: Assessment: POD # 3 s/p left hand pain with I and D left hand with Dr. Zacarias 03/08/18. Pts. cultures have been negative to date, his diagnosis is most c/w left wrist CPPD at this point. Pt. has been continuing IV abx per ID, awaiting further assessment as to when these may be discontinued. Continue pain med regimen Continue to Ice Continue elevation Leave posterior splint in place Pt. has a drain sutured in place which will need to be removed with a suture removal once his output is minimal to none. Pt. states he is planning to return to [place] Tuesday, where he has a lot of family and friend support. He will follow up there for ongoing care. He states that he does have access to medical care there. S: Pt. states that his pain is vastly improved, movement is still painful but getting much better. No numbness or tingling of the fingers, continues to have some stiffness of the fingers. O: Pt. appears to be resting comfortably in NAD. Fingers appear to be somewhat swollen, but he has brisk capillary refill, intact sensation to light touch to all digits, can move each finger with mild pain upon movement. 03/08/18 09:58 03/09/18 11:17 03/11/18 15:18 Objective: Vital Signs Temp Pulse Resp BP Pulse Ox 36.8 C 76 16 135/87 H 97 03/11/18 07:24 03/11/18 07:24 03/11/18 07:24 03/11/18 07:24 03/11/18 07:24 Microbiology 03/08/18 22:55 Gram Stain - Final Wrist - Eswab 03/08/18 22:38 Gram Stain - Final Wrist - Eswab Laboratory Results 03/08/18 05:26 03/08/18 05:26 03/10/18 03/11/18 03/12/18 05:59 05:59 05:59 Intake Total 2000 800 Output Total 4950 1000 10 Balance -2950 -200 -10 PT 14.7 SEC (12.0-15.0) 03/06/18 01:43 INR 1.13 (0.83-1.16) 03/06/18 01:43 ICD10 Worksheet Patient Problems: Problems Problem Status Onset Wrist pain, acute Acute
--- NOTE | 2018-03-11 17:37 | HOSPPROG ---
Hospitalist Progress Note Assessment/Plan: 52yo M with chronic pain on opioids, multiple back surgeries with hardware, recent perforated duodenal ulcer s/p Prosper patch presents with acute onset erythema and pain in left wrist. # acute inflammatory arthropathy of left wrist with extensive tenosynovitis, cloudy fluid and thick whitish material removed: * Now status post surgical exploration with debridement and washout * CPPD crystals present and surgical findings consistent with that * Cultures now negative at 48 hr and is not felt to have infection #Acute on chronic pain - Continue dilaudid QUALITY CONTROL LAB TECH for pain control #Recent duodenal perforation: Repaired with Prosper patch 2 weeks ago NO NSAIDS DUE TO THIS * continue PPI, no nsaids #H pylori: Currently being treated with triple therapy (amoxicillin had fallen of his med rec, now restarted). #Reported h/o IVDU: Denies recent use. #? 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 Reportedly completed 6 weeks of cefazolin. PLANS: * Continue empiric vancomycin, ID following, blood cultures without growth thus far * NO NSAIDS DUE TO HIS RECENT PERFORATED DUODENAL ULCER; per Ortho no steroids until wound healing has progressed * Drain still in place, sounds like orthopedics would like him to remain here until the drain can be removed but need to check with Orthopedics for that * Will need splint and very careful follow-up with Orthopedics SUBJECTIVE: again pain notably better since surgery no chills or sweats OBJECTIVE Vitals reviewed: Stable without fever Exam: alert oriented relaxed skin warm dry color ok resps not labored lungs clear BSs heart regular abd soft nondistended nontender, bowel sounds present limbs hand wrist forearm in splints, good circulation to fingers and good sensation there, good color iv site ok Microbiology: G stain negative cultures pending with no growth to date Objective: Vital Signs Temp Pulse Resp BP Pulse Ox 36.8 C 89 16 128/76 H 95 03/11/18 16:00 03/11/18 16:00 03/11/18 16:00 03/11/18 16:00 03/11/18 16:00 Microbiology 03/08/18 22:55 Gram Stain - Final Wrist - Eswab 03/08/18 22:38 Gram Stain - Final Wrist - Eswab Laboratory Results 03/08/18 05:26 03/08/18 05:26 1103/11/18 03/12/18 06:59 06:59 06:59 Intake Total 1999 800 Output Total 4950 1010 Balance -2950 -210 PT 14.7 SEC (12.0-15.0) 03/06/18 01:43 INR 1.13 (0.83-1.16) 03/06/18 01:43 ICD10 Worksheet Patient Problems: Problems Problem Status Onset Wrist pain, acute Acute
[2018-03-11] MEDS: traZODone 50 MG TAB PO SCH (22:37)
[2018-03-12] MEDS: oxyCODONE IR 5 MG TAB PO PRN ×6 (00:46→15:28)
[2018-03-12 07:27] VITALS: BP 106/70
[2018-03-12] MEDS: GABAPENTIN 100 MG CAP PO SCH ×2 (08:11→15:29)
[2018-03-12] MEDS: buPROPion XL 150 MG TAB PO SCH (08:11)
[2018-03-12] MEDS: PANTOPRAZOLE SODIUM 40 MG TAB PO SCH (08:11)
[2018-03-12] MEDS: CLARITHROMYCIN 500 MG TAB PO SCH (08:12)
--- NOTE | 2018-03-12 13:37 | SOAPPROG ---
SOAP Progress Note Assessment/Plan: Assessment: POD # 4 s/p severe left hand pain and swelling with I and D left hand with Dr. Zacarias 03/08/18. Pts. cultures have been negative to date, his diagnosis is most c/w left wrist CPPD at this point. Pts. IV antibiotics have finished. Pt. given an rx for Oxycodone 5-10 mg every 4-6 hours for severe pain. Continue to Ice Continue elevation Suture removal in 6-8 days. Watch wound for any surrounding redness, warmth, abnormal drainage-seek immediate medical attention if this should occur. Follow up immediately for fevers, increased pain or new numbness/tingling of the hand/fingers. Pts. drain was pulled. New xeroform applied and splint re-applied over bulky gauze dressings. Splint may be discontinued once you return to [place] and risk of injury to the arm has decreased. Begin Occupational Therapy for your hand to help regain strength and range of motion, once sutures have been removed. Pt. states he is planning to return to [place] Tuesday, where he has a lot of family and friend support. He will have his sutures removed in 6-8 days in [place]. He states that he does have access to medical care there. I advised him that for further management of his CPPD, he will need to establish care with a [facility] or regular PCP. This can be done once he returns to [place] more permanently, or in [place] if still there. S: Pt. states that his pain is vastly improved, movement is still painful but getting much better. Mild tingling of the thumb, index and middle fingers, much improved since the months prior to this surgery however, he continues to have some stiffness of the fingers, but improving. He does have concerns over the amount of function he will regain in the left hand with regards to strength and the ongoing pain he is likely to have. We did discuss our inability to use steroids in his treatment due to his recent peptic ulcer, as well as the importance of following up with Occupational Hand Therapy to best re-gain use of the left hand. O: Pt. appears to be resting comfortably in NAD. Fingers appear to be swollen, but he has brisk capillary refill, intact sensation to light touch to all digits , can move each finger with mild pain upon movement. The dressing and splint were removed and the incision was inspected. The was no surrounding redness, warmth, discharge from the incision. Wound edges were well approximated. The hand and fingers were much more sensitive to any movement without the splint in place. The drain sutures were clipped and the rain was easily removed. A new xeroform dressing was applied with bulky gauze dressing to the proximal forearm. The plaster splint piece was placed back and held in place by Daren wraps since the pt. will be traveling around a lot and carrying multiple bags as he gathers his things to return to [place]. This was to provide more protection to his arm until he returns to [place] and then he can discontinue it. 03/08/18 09:58 03/09/18 11:17 03/11/18 15:18 03/12/18 13:24 Objective: Vital Signs Temp Pulse Resp BP Pulse Ox 36.8 C 92 16 106/70 98 03/12/18 07:23 03/12/18 07:23 03/12/18 07:23 03/12/18 07:23 03/12/18 07:23 Microbiology 03/08/18 22:55 Gram Stain - Final Wrist - Eswab 03/08/18 22:38 Gram Stain - Final Wrist - Eswab Laboratory Results 03/08/18 05:26 03/08/18 05:26 03/11/18 03/12/18 03/13/18 05:59 05:59 05:59 Intake Total 800 750 Output Total 1000 10 Balance -200 740 PT 14.7 SEC (12.0-15.0) 03/06/18 01:43 INR 1.13 (0.83-1.16) 03/06/18 01:43 ICD10 Worksheet Patient Problems: Problems Problem Status Onset Wrist pain, acute Acute
--- NOTE | 2018-03-12 15:05 | HOSPPROG ---
Hospitalist Progress Note Assessment/Plan: 52 yo M w pseudogout home today see dc Subjective: ready for dc Objective: Vital Signs Temp Pulse Resp BP Pulse Ox 36.8 C 92 16 106/70 98 03/12/18 07:23 03/12/18 07:23 03/12/18 07:23 03/12/18 07:23 03/12/18 07:23 Microbiology 03/08/18 22:55 Gram Stain - Final Wrist - Eswab 03/08/18 22:38 Gram Stain - Final Wrist - Eswab Laboratory Results 03/08/18 05:26 03/08/18 05:26 03/11/18 03/12/18 03/13/18 05:59 05:59 05:59 Intake Total 800 750 Output Total 1000 10 Balance -200 740 PT 14.7 SEC (12.0-15.0) 03/06/18 01:43 INR 1.13 (0.83-1.16) 03/06/18 01:43 - Physical Exam Constitutional: no apparent distress, appears nourished Eyes: PERRL, anicteric sclera Ears, Nose, Mouth, Throat: moist mucous membranes, hearing normal Cardiovascular: regular rate and rhythym, no murmur, rub, or gallop Respiratory: no respiratory distress, no rales or rhonchi Gastrointestinal: normoactive bowel sounds, soft, non-tender abdomen Genitourinary: no bladder fullness, No tena in urethra Skin: warm, normal color Musculoskeletal: full muscle strength ICD10 Worksheet Patient Problems: Problems Problem Status Onset Wrist pain, acute Acute
--- NOTE | 2018-03-12 15:29 | ASMTLACE ---
LACE Length of stay for Answers: 4-6 days current admission Comorbidities - select Answers: Opioid dependence all that apply / Chronic pain # of Emergency department Answers: 1-2 visits in the last 6 months Social determinants Answers: History of substance abuse (ETOH, street drugs, prescription drugs, etc.) Homelessness (street, long-term) Score: 15 Date Signed: 03/12/2018 03:29 PM Electronically Signed By:Amina Meade LCSW
--- NOTE | 2018-03-12 15:33 | ASDISCHSUM ---
Discharge Information Plan Status:Home with No Needs Medically Cleared to Leave:03/11/2018 Discharge Date:03/11/2018 CM D/C Disposition:Home, Routine, Self-Care ADT D/C Disposition:Home, Routine, Self-Care Projected Discharge Date:03/12/2018 04:00 PM Transportation at D/C:Self Discharge Delay Reason: Follow-Up Date:03/12/2018 04:00 PM Discharge Slot:2 - 12:01 pm - 18:00 pm Final Diagnosis:Wrist pain infection Placement Information Patient Contact Information Contact Name:MERI Relationship: Address:[phone] Work Phone: [facility]:[place] Alternate Phone: [facility]/Zip Code:[place] [address] Email: Financial Information Financial Class:Medicaid Primary Plan Desc:MEDICA[employer]ALTH [facility] [facility] Primary Plan Number:[id number] Secondary Plan Desc: Secondary Plan Number: Assessment Information LACE LACE Length of stay for Answers: 4-6 days current admission Comorbidities - select Answers: Opioid dependence all that apply / Chronic pain # of Emergency department Answers: 1-2 visits in the last 6 months Social determinants Answers: History of substance abuse (ETOH, street drugs, prescription drugs, etc.) Homelessness (street, alf) Score: 15 Date Signed: 03/12/2018 03:29 PM Electronically Signed By:Amina Meade LCSW [facility] Progress Note CM Note CM Note Notes: Pt has been admitted with intractable L wrist pain. Workup in progress. He was recently discharged from [facility] after hospitalization for a perforated duodenal ulcer and surgery. He is and lives in [place]. CM will follow for any d/c needs. Date Signed: 03/06/2018 04:06 PM Electronically Signed By:ALIA Chaudhary [facility] CM Progress Note CM Note CM Note Notes: Pt is homeless, has been staying at local homeless alf. PT rec today says home vs. SNF and "No PT needs." Ortho and ID consulting. Currently on IV antibiotics, CM to follow if pt needs to d/c on IV antibiotics. Date Signed: 03/07/2018 03:53 PM Electronically Signed By:ALIA Li [facility] CM Progress Note CM Note CM Note Notes: Pt had MRI and I & D. Pt now on IV dapto. Pt likely has pseudogout, is NWB and no heavy lifting. ID and ortho consulting. CM to follow for d/c needs. Date Signed: 03/10/2018 04:39 PM Electronically Signed By:ALIA Li [facility] CM Progress Note CM Note CM Note Notes: Spoke with pt as he may d/c today. Pt reports he has no friends/family home he can d/c to. Pt declines alf bed, reports it will be too challenging to have to leave during days. Pt does not qualify for medical respite. Pt does not want to spend money on a hotel because his medical condition will not change soon. Pt verbalizes he wants to stay at [facility] until Tuesday. When asked what will change by Tuesday, pt reports by Tuesday he can make a plan to get back to [place] where he has support. CM to follow. Date Signed: 03/11/2018 09:45 AM Electronically Signed By:ALIA Li Case Management Discharge Plan Note Case Management Discharge Discharge Order Complete? Answers: Yes Patient to Obtain Answers: Independently Medications Transportation Arranged Answers: Other Notes: self Transport will Pick (Date 03/12/2018 04:00 PM & Time) Discharge Comments Notes: Patient decided that he wanted to be discharged today. Hand and wrist feeling better. Plans to go back to [place] where he has more support and has medical care. Date Signed: 03/12/2018 03:33 PM Electronically Signed By:Amina Meade LCSW Intervention Information
--- NOTE | 2018-03-12 20:19 | GDS ---
DISCHARGE DIAGNOSES: 1. Pseudogout of the right wrist, status post surgical evaluation. 2. Chronic pain, on chronic narcotic therapy. 3. Recent duodenal artery perforation with Prosper patch repair. HOSPITAL COURSE: Presented overnight on the , with pain in his wrist. He was seen by Surgery and taken to the operating room on the , showing an abscess of his wrist that ultimately was negative for micro and grew out calcium pyrophosphate crystals. He also had carpal tunnel release and flexor tenosynovectomy of all flexor tendons. The patient recovered well. His antibiotics were discontinu ed with negative micro. He was discharged home. He was provided with a pain pill prescription by [facility]. /[id number]/MODL
== END 2018-03-12 16:18 | disposition home or self-care (01) | DRG 316 ==
LOC: EDUNIT# → F3N 04:26 → OBSVTOIN 03-07 16:09
PROVIDERS: ADMIT Family Medicine; ATTEND Family Medicine
DX: M11.231 Other chondrocalcinosis, right wrist (principal); D64.9 Anemia, unspecified; M65.88 Other synovitis and tenosynovitis, other site; E86.9 Volume depletion, unspecified; G89.29 Other chronic pain; F32.9 Major depressive disorder, single episode, unspecified; Z59.0 Homelessness; Z98.1 Arthrodesis status
CPT/HCPCS: 80307; 96374; 97161-GP; A9585; G0378; G0480; J0330; J0878; J1170; J1885; J2250; J2270; J2405; J2704; J3370; Q9967